=== PATIENT | male | born 1965 | race Caucasian/White ===

== ENCOUNTER 2018-09-18 00:59 | Emergency (ER) | payer OTHER, MEDICAID, SELFPAY ==
[2018-09-18 01:05] VITALS: BP 182/109; PULSE 90; RESP 18; TEMP 36.6; O2SAT 95; BMI 26.9
--- NOTE | 2018-09-18 02:03 | DI.CT.S_ITS ---
PROCEDURE: CT ANGIO ABD AORTA RUNOFF INDICATIONS: left hip pain, cold left leg, history of fem-pop and dissection TECHNIQUE: After the administration of intravenous contrast, 2.5 mm sections acquired from T12 to the feet, with optional delayed image acquisition from the knees to the feet. 3-dimensional maximum intensity projection (MIP) coronal and sagittal reformats, and/or 3-dimensional volume rendering reformatting was then performed. For radiation dose reduction, the following was used: automated exposure control. COMPARISON: [facility], CT, CHEST/ABD/PEL W&WO CONTRAST, 08/11/2015, 16:26. [facility], CT, ANGIOGRAPHY CHEST AND ABDOMEN, 10/18/2015, 0:59. FINDINGS: Image quality: Excellent. Extravascular tissues: Lung bases are clear. Heart size is normal. Liver is normal in size and enhancement. Gallbladder is unremarkable. Biliary system is non dilated. Pancreas enhances normally. Spleen is normal in size and enhancement. No adrenal nodules. Kidneys are normal in size and enhancement, without hydronephrosis. Non opacified bowel loops demonstrate normal wall thickness and enhancement. The appendix is thin walled and gas filled. There are scattered sigmoid diverticula. No evidence for diverticulitis. No free fluid or air. No retroperitoneal or mesenteric adenopathy. No ventral hernias. The questionable enhancing mass is present at the anterior aspect of the bladder (series 5, image 188). The bladder is otherwise thin walled. No inguinal adenopathy. There are bilateral small fat-containing inguinal hernias. There are degenerative changes present at the left hip joint with marked deformity of the femoral head and the acetabulum. Mild hip arthritis is present on the right. Posterior fixation hardware at the lumbosacral junction is grossly intact. No vertebral body compression fractures. Abdominal aorta: Aortic dissection is redemonstrated. There is increased fusiform dilatation of the distal thoracic and abdominal aorta when compared with prior CT dated 08/11/15. The distal thoracic aorta now measures 3.4 cm in AP diameter and previously measured 2.6 cm. As before, the true lumen feeds the celiac axis, SMA, bilateral renal arteries, and is propagated down both common iliac arteries. The LISA is likely fed off the true lumen as well. The size of the true lumen is increased with respect to the false lumen when compared with the prior study from 2014. The true lumen now extends down both iliac arteries to perfuse the lower extremities. Right lower extremity: The right common iliac artery measures 2.6 cm in diameter. The aortic dissection extends down the common iliac artery to the bifurcation of the internal/external iliac arteries. The iliac arteries, common femoral artery, profunda, and superficial femoral artery are widely patent. There is an extra anatomic femoral-femoral bypass graft which is patent. The popliteal artery, anterior tibial, posterior tibial, and peroneal arteries are patent to the level of the foot. Left lower extremity: The lumen of the aortic dissection terminates within the midportion of the left common iliac artery. The left common iliac artery measures 2.3 cm in diameter. The left internal/external iliac arteries, common femoral artery, profunda, superficial femoral artery, and popliteal artery are widely patent. The anterior tibial, posterior tibial, and peroneal arteries are well-opacified to mid calf. There is no opacification of the distal aspect of the anterior posterior tibial artery which likely represents poor timing of the contrast bolus and less likely represents occlusion. IMPRESSION: 1. Abdominal aortic dissection with fusiform dilatation of the distal thoracic aorta which is increased when compared with the prior study from 2015. The extent of aortic dissection is incompletely characterized without the use of the thorax. 2. Propagation of the dissection into the bilateral common iliac arteries. 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 3. Widely patent lower extremity arteries bilaterally and a patent extra anatomic femoral-femoral bypass graft. 4. Probable bilateral three-vessel lower extremity runoff. There is no opacification of the distal half of the left posterior tibial artery; however this is likely secondary to delayed timing bolus as opposed to true occlusion. If further characterization is warranted, ultrasound of this vessel was recommended. Please note, this is discrepant with the overnight interpretation. 5. Severe degenerative change within the left hip joint. 6. Questionable enhancing anterior bladder mass. Neoplasm cannot be excluded. Consider direct visualization. Overall findings are concordant with the overnight interpretation. Dictated by: Carole Cadena M.D. on 09/18/2018 at 7:23 Approved by: Carole Cadena M.D. on 09/18/2018 at 9:00
[2018-09-18 02:28] LABS: Add Manual Diff / Slide Review NO; Basophils Absolute Auto 100 /uL (0-100); Basophils Percent Auto 0.7 % (0-2); Eosinophils Absolute Auto 200 /uL (0-450); Eosinophils Percent Auto 2.4 % (2-4); Hematocrit 46.8 % (41-53); Hemoglobin 15.8 g/dL (13.5-17.5); Lymphocytes Absolute Auto 1500 /uL (1100-4500); Lymphocytes Percent Auto 18.3 % (25-40); Mean Corpuscular HGB Conc 33.9 % (30-36); Mean Corpuscular Volume 85.7 fL (80-100); Monocytes Absolute Auto 700 /uL (0-900); Monocytes Percent Auto 8.7 % (3-14); Neutrophils Absolute Auto 5700 /uL (1500-7000); Neutrophils Percent Auto 69.9 % (50-75); Platelet Count 267 X10^3/uL (150-400); Red Blood Cell Count 5.46 X10^6/uL (4.5-5.9); Red Cell Distribution Width 15.2 % (11.6-14.8); White Blood Cell Count 8.2 X10^3/uL (4.5-11.0)
[2018-09-18 02:29] LABS: INR 0.9 (0.9-1.3); Prothrombin Time 10.3 SECONDS (10.1-12.7)
[2018-09-18 02:31] LABS: PTT Partial Thromboplastin Tim 33 SECONDS (26.4-36.2)
[2018-09-18 02:33] LABS: BUN Creatinine Ratio 17.1 (6-22); Blood Urea Nitrogen 24 mg/dL (9-20); Calcium 9.5 mg/dL (8.4-10.2); Carbon Dioxide 30 mmol/L (22-32); Chloride 103 mmol/L (98-107); Estimated Glomerular Filt Rate 53.4 mL/min (>60); Glucose 93 mg/dL (70-100); HEMOLYSIS < 15 (0-50); Potassium 4.8 mmol/L (3.4-5.1); Sodium 141 mmol/L (137-145)
[2018-09-18 02:45] VITALS: BP 151/97; PULSE 80; RESP 18; O2SAT 97
[2018-09-18 04:14] VITALS: BP 157/97; PULSE 87; RESP 18; TEMP 36.7; O2SAT 96
--- NOTE | 2018-09-18 04:51 | ED_ITS ---
HPI - Extremity Problem General Chief complaint: Extremity Problem,Nontraumatic Stated complaint: left hip pain has stent in area Time Seen by Provider: 09/18/18 01:46 Source: patient Mode of arrival: ambulatory Limitations: no limitations History of Present Illness HPI Narrative: Patient is a 53-year-old male presenting with left hip pain ongoing for the last 6 months. He says it is not any worse however he is having difficulty getting a primary care physician along with into his vascular surgeons down in [place]. He has significant peripheral vascular disease along with some type 1 aortic dissection. He says he has a fem-pop bypass as well which was done 3 years ago. Since then his left foot has been cold no one has ever been able to palpate or Doppler a pulse. He walks with a cane, he says his right leg does much of the work. The pain in his hip is overall just progressively gotten worse he has no back pain no numbness or he has no abdominal pain nausea vomiting no chest pain no shortness of breath. He denies any back pain no injury. tingling in his extremities. He has not had any fever or chills. He just would like some help and the referral all and/or a workup of any kind. He also admits that he is not taking aspirin regularly. MD Complaint: extremity pain Related Data Previous Rx's Medication Instructions Recorded aspirin 81 mg PO DAILY #60 tab 09/18/18 Review of Systems Review of Systems ROS Unobtainable: All systems reviewed & are unremarkable except as noted in HPI and below Constitutional Denies chills, Denies fever(s), Denies lethargy and Denies weakness Cardiovascular Reports as per HPI, Denies chest pain, Denies syncope, Denies rapid heart rate, Denies pedal edema, Denies edema, Denies lightheadedness, Denies dyspnea and Denies dyspnea on exertion Respiratory Denies cough, Denies dyspnea, Denies dyspnea on exertion and Denies wheezing Gastrointestinal Gastrointestinal: Denies abdominal pain, Denies change in bowel habits, Denies diarrhea, Denies nausea and Denies vomiting Musculoskeletal Reports as per HPI Integumentary/Breasts Denies pruritus, Denies erythema, Denies rash and Denies wounds Neurologic Denies syncope and Denies weakness Allergic/Immunologic Denies wheezing Exam Initial Vital Signs Initial Vital Signs: Vital Signs Temperature 98 F 09/18/18 01:05 Pulse Rate 90 01/19/19 01:05 Respiratory Rate 18 09/18/18 01:05 Blood Pressure 182/109 H 09/18/18 01:05 Pulse Oximetry 95 09/18/18 01:05 GENERAL: Well-appearing, well-nourished and in no acute distress. HEENT: Head atraumatic,EOMI, pupils reactive, face symmetric, moist mucous membranes CARDIOVASCULAR: Regular rate and rhythm without murmurs, rubs or gallops. RESPIRATORY: Breath sounds equal bilaterally, no wheezes rales or rhonchi. ABDOMEN: Soft, nontender. Normoactive bowel sounds all 4 quadrants. No guarding or rebound : No CVA tenderness EXTREMITIES: Normal range of motion, no clubbing or edema. Neurovascularly intact Left hip is extremely tender ill with any kind of internal external rotation nontender palpation ft is cyanotic no palpable or dopplerable pulses. Groin is warm with of faint femoral pulse is present. NEUROLOGICAL: Alert and oriented x4. Cranial nerves II through XII grossly intact. Ambulatory with cane but not normal posture SKIN: Warm, dry, no laceration, no petechiae, no rashes or lesions. Course Orders Ordered: ED Orders 09/18/18 02:03 CT angio abd aorta runoff Stat 09/18/18 02:09 Basic Metabolic Panel Stat Complete Blood Count AUTO DIFF Stat Partial Thromboplastin Time Stat Prothrombin Time INR Stat Vital Signs - 8 hr 09/18/18 01:05 09/18/18 02:45 09/18/18 04:14 Temperature 98 F 98.0 F Pulse Rate 90 80 87 Respiratory Rate 18 18 18 Blood Pressure 182/109 H Blood Pressure [Left Arm] 151/97 H 157/97 H Pulse Oximetry 95 97 96 MDM - Extremity (Nontraumatic) Lab Data Attestation: I reviewed the patient's lab results. Result diagrams: 09/18/18 02:09 09/18/18 02:09 Lab Results 09/18/18 09/18/18 09/18/18 Range/Units 02:09 02:09 02:09 WBC 8.2 (4.5-11.0) X10^3/uL RBC 5.46 (4.5-5.9) X10^6/uL Hgb 15.8 (13.5-17.5) g/dL Hct 46.8 (41-53) % MCV 85.7 (80-100) fL MCH 29.0 (26-34) PG MCHC 33.9 (30-36) % RDW 15.2 H (11.6-14.8) % Plt Count 267 (150-400) X10^3/uL Neut % (Auto) 69.9 (50-75) % Lymph % (Auto) 18.3 L (25-40) % [place] % (Auto) 8.7 (3-14) % Eos % (Auto) 2.4 (2-4) % Baso % (Auto) 0.7 (0-2) % Neut # (Auto) 5700 (2893-1252) /uL Lymph # (Auto) 1500 (1389-3402) /uL [place] # (Auto) 700 (0-900) /uL Eos # (Auto) 200 (0-450) /uL Baso # (Auto) 100 (0-100) /uL PT 10.3 (10.1-12.7) SECONDS INR 0.9 (0.9-1.3) APTT 33 (26.4-36.2) SECONDS Sodium 141 (137-145) mmol/L Potassium 4.8 (3.4-5.1) mmol/L Chloride 103 (98-107) mmol/L Carbon Dioxide 30 (22-32) mmol/L BUN 24 H (9-20) mg/dL Creatinine 1.40 H (0.66-1.25) mg/dL Estimated GFR 53.4 L (>60) mL/min BUN/Creatinine Ratio 17.1 (6-22) Glucose 93 (70-100) mg/dL Calcium 9.5 (8.4-10.2) mg/dL Imaging Data CT angio abdomen runoff: Radiologist's impression: multi share program coordinator report: Abdominal aortic dissection. The dissection involves the partially visualized descending thoracic aorta. Extent of the involvement of the thoracic aorta is unknown as the chest was not imaged. 2 query mild enteritis. 3. 1 cm enhancing lesion in the anterior wall of the urinary bladder. Malignancy is not excluded. 4. Advanced degenerative changes of the hip. Suspected avascular necrosis of left femoral head. 5. Small left hip joint effusion. Septic arthritis is not excluded. Angiogram runoff. 2 vessel runoff of left foot occlusion of mid left posterior tibial artery. Three-vessel runoff of the right foot. 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 He says no one is able to fix that. He has been having hip pain ongoing for the last 6 months. I discussed results with the radiologist. Suspect his avascular necrosis on arthritis. I have watch patient ambulate while in the ED he does a lot of stress into that hip he is unable to fully weight bear on his left side. At this time no need for any emergent consultations. I did discuss with him at length his he may require a foot amputation which would likely help so he may require a hip replacement. He is given information for Orthopedics and strongly recommended to call them. At this time his symptoms have been ongoing for least 6 months or more. Discharge Plan Departure Patient Disposition: Home Clinical Impression: Avascular necrosis Discharge Date/Time: 09/18/18 05:05 Interventions: ED Discharge Assessment Last Done: 09/18/18 05:29 Instructions: Aseptic Necrosis of the Hip Activity Restrictions/Additional Instructions: *You have been diagnosed with likely avascular necrosis of the hip *What to do: May require surgery, this certainly can cause worsening problems if not addressed however this is been ongoing for a number of months. *Continue to take medications as directed: FAXED TO [facility] [place] Aspirin 81 mg once a day *Follow up with your primary care provider in 2-3 days, call Orthopedic surgery Thursday for potential follow-up *Return to ER if you should have numbness, tingling, increased weakness or any new, worsening or concerning symptoms Prescriptions: New aspirin 81 mg tablet,chewable 81 mg PO DAILY Qty: 60 RF: 0 Referrals: [facility] [Provider Group] Yazan Lord MD [Primary Care Provider] -
== END 2018-09-18 05:05 | disposition home or self-care (01) ==
PROVIDERS: Emergency Provider Emergency Medicine; Family Provider Thoracic Surgery (Cardiothoracic Vascular Surgery); PCP Thoracic Surgery (Cardiothoracic Vascular Surgery)
DX: M87.00 Idiopathic aseptic necrosis of unspecified bone (principal)
CPT/HCPCS: 36591; 75635; 80048; 85025; 85610; 85730; 99282; 99284; Q9967

== ENCOUNTER → 2019-02-25 09:26 | Outpatient (CLI) | payer OTHER, MEDICAID, SELFPAY ==
[2019-02-25 10:00] LABS: Urine Tetrahydrocannabinol Negative (Negative)
[2019-02-25 10:01] LABS: Urine Amphetamines Negative (Negative); Urine Barbiturates Negative (Negative); Urine Benzodiazepines Negative (Negative); Urine Cocaine Negative (Negative); Urine MDMA Negative (Negative); Urine Methadone Negative (Negative); Urine Methamphetamines Negative (Negative); Urine Morphine/Opi cutoff 2000 Negative (Negative); Urine Oxycodone Negative (Negative); Urine Phencyclidine Negative (Negative); Urine Tricyclic Antidepressant Negative (Negative)
[2019-02-25 10:32] LABS: Add Manual Diff / Slide Review NO; Basophils Absolute Auto 0 /uL (0-100); Basophils Percent Auto 0.6 % (0-2); Eosinophils Absolute Auto 200 /uL (0-450); Eosinophils Percent Auto 2.2 % (2-4); Hematocrit 47.1 % (41-53); Hemoglobin 15.8 g/dL (13.5-17.5); Lymphocytes Absolute Auto 1700 /uL (1100-4500); Lymphocytes Percent Auto 23.3 % (25-40); Mean Corpuscular HGB Conc 33.6 % (30-36); Mean Corpuscular Hemoglobin 29.4 PG (26-34); Mean Corpuscular Volume 87.5 fL (80-100); Monocytes Absolute Auto 600 /uL (0-900); Monocytes Percent Auto 8.7 % (3-14); Neutrophils Absolute Auto 4800 /uL (1500-7000); Neutrophils Percent Auto 65.2 % (50-75); Platelet Count 257 X10^3/uL (150-400); Red Blood Cell Count 5.38 X10^6/uL (4.5-5.9); Red Cell Distribution Width 14.4 % (11.6-14.8); White Blood Cell Count 7.4 X10^3/uL (4.5-11.0)
[2019-02-25 10:57] LABS: BUN Creatinine Ratio 21.4 (6-22); Blood Urea Nitrogen 30 mg/dL (9-20); Calcium 9.2 mg/dL (8.4-10.2); Carbon Dioxide 25 mmol/L (22-32); Chloride 104 mmol/L (98-107); Cholesterol 192 mg/dL (140-199); Estimated Glomerular Filt Rate 53.4 mL/min (>60); Glucose 94 mg/dL (70-100); HDL Cholesterol 32 mg/dL (40-60); HEMOLYSIS < 15 (0-50); LDL Cholesterol Calculated 108 mg/dL (<100); Potassium 4.2 mmol/L (3.4-5.1); Sodium 140 mmol/L (137-145); Triglycerides 262 mg/dL (35-150)
== END ==
PROVIDERS: Visit Provider Internal Medicine Cardiovascular Disease
DX: I10 Essential (primary) hypertension (principal); Z86.79 Personal history of other diseases of the circulatory system; Z86.73 Personal history of transient ischemic attack (TIA), and cerebral infarction without residual deficits; Z87.898 Personal history of other specified conditions
CPT/HCPCS: 36415; 80048; 80061; 80305; 85025

== ENCOUNTER 2020-09-01 09:06 | Emergency (ER) | payer OTHER, MEDICAID, SELFPAY ==
[2020-09-01 09:26] VITALS: BP 147/82; PULSE 93; RESP 18; TEMP 36.3; O2SAT 96
--- NOTE | 2020-09-01 09:39 | DI.US.S_ITS ---
PROCEDURE: US SCROTUM INDICATIONS: RIGHT TESTICULAR PAIN TECHNIQUE: Real-time scanning was performed of the scrotum and testicles, with image documentation. Color and pulse Doppler interrogation was performed of both testicles. COMPARISON: None. FINDINGS: Right: Testicle is normal in size at 3.6 x 2.1 x 3 cm, and homogenous in echotexture. Epididymis is normal in overall size. The epididymis is seen, with a thickness of 1.8 cm. Small cysts can be seen within the epididymis measuring up to 5 mm. There is a complex nonvascular mass seen within the right epididymis that measures 2.2 x 1.3 x 2.2 cm. Apparent calcification can be seen within this epididymal mass. There is a moderate right-sided hydrocele. No varicocele is seen. Overlying scrotal skin is normal in thickness. Left: Testicle is normal in size at 4.3 x 2.2 x 3 cm, and homogeneous in echotexture. Epididymis is normal in overall size and demonstrates small cysts that measure up to 5 mm. There is a small left-sided hydrocele. No varicoceles. Overlying scrotal skin is normal in thickness. Doppler: Color and pulse Doppler demonstrate normal and symmetric arterial flow in both testicles. IMPRESSION: 2.2 cm seen of the right epididymis, without abnormal vascularity. Moderate right-sided hydrocele. Small left-sided hydrocele seen. Epididymal cysts are seen on both sides. Dictated by: Charlie Vivar M.D. on 09/01/2020 at 10:03 Approved by: Charlie Vivar M.D. on 09/01/2020 at 10:07
[2020-09-01 10:00] LABS: Add Manual Diff / Slide Review NO; Basophils Absolute Auto 100 /uL (0-100); Basophils Percent Auto 0.8 % (0-2); Eosinophils Absolute Auto 200 /uL (0-450); Eosinophils Percent Auto 2.4 % (2-4); Hematocrit 46.2 % (41-53); Hemoglobin 15.6 g/dL (13.5-17.5); Lymphocytes Absolute Auto 1000 /uL (1100-4500); Lymphocytes Percent Auto 13.4 % (25-40); Mean Corpuscular HGB Conc 33.9 % (30-36); Mean Corpuscular Hemoglobin 29.9 PG (26-34); Mean Corpuscular Volume 88.4 fL (80-100); Monocytes Absolute Auto 700 /uL (0-900); Monocytes Percent Auto 8.9 % (3-14); Neutrophils Absolute Auto 5600 /uL (1500-7000); Neutrophils Percent Auto 74.5 % (50-75); Platelet Count 233 X10^3/uL (150-400); Red Blood Cell Count 5.23 X10^6/uL (4.5-5.9); Red Cell Distribution Width 13.9 % (11.6-14.8); White Blood Cell Count 7.5 X10^3/uL (4.5-11.0)
[2020-09-01 10:05] LABS: INR 0.9 (0.9-1.3); Prothrombin Time 10.5 SECONDS (10.1-12.7)
[2020-09-01 10:07] LABS: PTT Partial Thromboplastin Tim 32 SECONDS (26.4-36.2)
--- NOTE | 2020-09-01 10:22 | ED.ABDPAIN ---
HPI - Abdominal Pain General Chief Complaint: Abdominal Pain Stated Complaint: ABDOMINAL/TESTICLE PAIN Time Seen by Provider: 09/01/20 09:12 Source: patient Mode of arrival: Wheelchair Limitations: no limitations History of Present Illness HPI narrative: This is a 55-year-old gentleman, smoker, who has past medical history significant for abdominal aortic dissection followed with surgery presents to ED with chief complain of right groin and suprapubic mild discomfort and leg pain. Patient reports onset of symptoms started 3-4 weeks ago which has been progressively worsening. He describes as kicked in the nuts. Patient denies fever, chills, vomiting but mild nausea. Patient denies dysuria but noticed changes in urination such as stronger stream but small amounts to void. Patient denies urinary frequency or hematuria. Patient states feels like emptying bladder completely. Reports pain increases with sleeping and lying on the side and has been pretty constant but not much of pain at this time. Also pain increases with increasing activity. Patient feels as there is swelling in right-sided scrotum. Patient denies chest pain, dyspnea, or near syncope. Patient takes high blood pressure medications which he does not remember medication name. She does not have PCP but sees [facility] in [place] and in [facility]. Related Data Home Medications Medication Instructions Recorded Confirmed hydralazine 10 mg tablet 10 mg PO TID 11/01/18 11/01/18 losartan 25 mg tablet 25 mg PO DAILY 11/01/18 11/01/18 metoprolol succinate 100 mg 100 mg PO DAILY 11/01/18 11/01/18 tablet,extended release 24 hr Previous Rx's Medication Instructions Recorded aspirin 81 mg PO DAILY #60 tab 09/18/18 Allergies Allergy/AdvReac Type Severity Reaction Status Date / Time No Known Drug Allergies Allergy Verified 09/01/20 09:37 Review of Systems Review of Systems Narrative: General: Denies fever, chills, fatigue, malaise, sweats. HEENT: Denies sinus pain, ear pain, sore throat, difficulty swallowing, dizziness. Respiratory: Denies dyspnea, cough, wheezing, hemoptysis, sputum. Cardiovascular: Denies chest pain, palpitations, orthopnea, edema. Gastrointestinal: See HPI : See HPI Musculoskeletal: Denies weakness, joint pain or bony pain. Skin: Denies rash, skin lesions, or other. Neurologic: Denies weakness, headache, numbness, change in speech, confusion, seizures, incoordination. Psychiatric: No concerning psychosocial issues. 12-point review of systems is negative except for those stated above. Patient History Social History Smoking Status: Current every day smoker Smoking Status: Current every day smoker alcohol intake frequency: 0-2 drinks per day Substance Use Type: marijuana Exam Narrative Exam Narrative: GEN: Alert, oriented x 3, well appearing and nourished, and in no acute distress. Head: Normal cephalic, atraumatic. No scalp or temporal tenderness, palpable mass or rash. EYES: Pupils are equal, round, and reactive to light and accommodation. Extraocular muscles are intact bilaterally. There is no subconjunctival hemorrhage, exudate and sclera non-icteric. ENT: Hearing grossly intact. Airway patent. Neck: Trachea in midline. No JVD, non-tender without lymphadenopathy. No masses or thyroid megaly. Supple, non-tender and no meningeal signs. CARDIAC: Normal regular rate and rhythm without murmurs, gallops, or rubs. No chest wall tenderness. No peripheral edema, cyanosis or pallor. Capillary refill is less than 2 seconds. RESPIRATORY: Lungs are clear to auscultate bilaterally. No cough, wheezes, rales, or rhonchi. No stridor, respiratory distress, increase work of breathing, or accessary muscle used. ABD: Abdomen soft, nontender and non-distended. No guarding or rebound tenderness to palpate. Bowel sounds are normal in all 4 quadrants. There is no palpable masses or organomegaly. EXT: Full painless ROM of all extremities with no loss of sensation, strength, effusion or edema. SKIN: Warm, dry, normal color for patient. No erythema, lesions or rash over visible areas. BACK: Nontender without deformity or crepitance. No flank tenderness. NEUROLOGICAL: Alert and oriented to place, time and person. Sensation and motor function intact bilaterally. No facial droops, dysphasia. PSYCHIATRIC: Good judgement and reason, without hallucinations, abnormal affect or abnormal behaviors during the examination. Patient is not suicidal. Initial Vital Signs Initial Vital Signs: Vital Signs Temperature 97.3 F L 09/01/20 09:26 Pulse Rate 93 H 09/01/20 09:26 Respiratory Rate 18 09/01/20 09:26 Blood Pressure 147/82 H 09/01/20 09:26 Pulse Oximetry 96 09/01/20 09:26 Penis: normal penis Meatus: meatus normal Scrotum: edematous, scrotal mass, scrotal swelling, no ulcerations and no varicoceles Testes: enlarged, testicular mass, testicular swelling, normal testicular lie and No testicular atrophy Scores GCS [place] coma scale eye opening: Spontaneous [place] coma scale verbal response: Orientated [place] coma scale motor response: Obey commands [place] coma scale total score: 15 qSOFA Altered Mental Status (GCS <15): No Respiratory rate greater than/equal to 22: No Systolic blood pressure less than or equal to 100: No qSOFA Total: 0 0-1 Not High Risk 1-3 High risk Course Orders Ordered: ED Orders 09/01/20 09:39 US scrotum Stat 09/01/20 09:50 Complete Blood Count AUTO DIFF Stat Comprehensive Metabolic Panel Stat Lipase Stat PTT [Partial Thromboplastin Time] Stat Prothrombin Time INR Stat Reevaluation(s) Reevaluation #1: Assumed care of the patient's care. US at bedside obtaining imaging test now. Time: 10:23 Vital Signs Vital signs: Vital Signs - 8 hr 09/01/20 09:26 Temperature 97.3 F L Pulse Rate 93 H Respiratory Rate 18 Blood Pressure 147/82 H Pulse Oximetry 96 MDM - Abdominal Pain Differential Diagnosis Differential diagnosis: Likely calculus of kidney and other (Hydrocele, testicular mass, epididymitis) Medical Records Attestation: I reviewed the patient's medical records. Lab Data Result diagrams: 09/01/20 09:50 09/01/20 09:50 Labs: Lab Results 09/01/20 09/01/20 Range/Units 09:50 09:50 WBC 7.5 (4.5-11.0) X10^3/uL RBC 5.23 (4.5-5.9) X10^6/uL Hgb 15.6 (13.5-17.5) g/dL Hct 46.2 (41-53) % MCV 88.4 (80-100) fL MCH 29.9 (26-34) PG MCHC 33.9 (30-36) % RDW 13.9 (11.6-14.8) % Plt Count 233 (150-400) X10^3/uL Neut % (Auto) 74.5 (50-75) % Lymph % (Auto) 13.4 L (25-40) % [place] % (Auto) 8.9 (3-14) % Eos % (Auto) 2.4 (2-4) % Baso % (Auto) 0.8 (0-2) % Neut # (Auto) 5600 (9963-9226) /uL Lymph # (Auto) 1000 L (2264-9399) /uL [place] # (Auto) 700 (0-900) /uL Eos # (Auto) 200 (0-450) /uL Baso # (Auto) 100 (0-100) /uL PT 10.5 (10.1-12.7) SECONDS INR 0.9 (0.9-1.3) APTT 32 (26.4-36.2) SECONDS Discharge Plan Departure Prescriptions: No Action hydralazine 10 mg tablet 10 mg PO TID RF: 0 losartan 25 mg tablet 25 mg PO DAILY RF: 0 metoprolol succinate 100 mg tablet extended release 24 hr 100 mg PO DAILY RF: 0 aspirin 81 mg tablet,chewable 81 mg PO DAILY Qty: 60 RF: 0
[2020-09-01 10:27] LABS: Alanine Aminotransferase 30 IU/L (<50); Albumin 4.1 g/dL (3.5-5.0); Albumin Globulin Ratio 1.2 (1.0-2.8); Alkaline Phosphatase 102 U/L (38-126); Aspartate Aminotransferase 25 IU/L (17-59); BUN Creatinine Ratio 25.4 (6-22); Bilirubin Total 0.3 mg/dL (0.2-1.3); Blood Urea Nitrogen 35 mg/dL (9-20); Calcium 9.2 mg/dL (8.4-10.2); Carbon Dioxide 27 mmol/L (22-32); Chloride 105 mmol/L (98-107); Estimated Glomerular Filt Rate 53.9 mL/min (>60); Globulin 3.5 g/dL (1.7-4.1); Glucose 98 mg/dL (70-100); HEMOLYSIS < 15 (0-50); Lipase 117 U/L (23-300); Potassium 4.6 mmol/L (3.4-5.1); Sodium 137 mmol/L (137-145); Total Protein 7.6 g/dL (6.3-8.2)
--- NOTE | 2020-09-01 10:46 | ED_ITS ---
HPI - Abdominal Pain <TRIP Urena - Last Filed: 09/01/20 12:07> General Chief Complaint: Abdominal Pain Stated Complaint: ABDOMINAL/TESTICLE PAIN Time Seen by Provider: 09/01/20 09:12 Source: patient Mode of arrival: Wheelchair Limitations: no limitations History of Present Illness HPI narrative: This is a 55-year-old male, smoker, who has past medical history significant for aortic aneurysm dissection followed by open her surgery 5 years ago presents to ED with chief complain of right groin and mild suprapubic abdominal discomfort radiating to leg for last 3-4 weeks. Patient reports this discomfort has been progressively worse and describes as kicked in the nuts. Patient denies fever, chills, vomiting but mild nausea. Patient denies dysuria, urinary frequency, or hematuria. Patient reports back pain but states had back surgeries in the past. Patient reports pain increases with sleeping and lying on his side, and physical activities. Patient reports changes in urinary habits and explains as stream seems slightly stronger but reports only in small amount. He feels as emptying bladder completely. He reports posterior scrotal swelling. Patient takes 3 blood pressure medications and baby aspirin daily but is not currently on anticoagulant/anti platelets. Patient denies chest pain, dyspnea, or dizziness. Patient has not been sexually active for a while and denies penile discharge. No PCP this time and his medication has been managed by stick feeder in [facility]. Related Data Home Medications Medication Instructions Recorded Confirmed hydralazine 10 mg tablet 10 mg PO TID 11/01/18 11/01/18 losartan 25 mg tablet 25 mg PO DAILY 11/01/18 11/01/18 metoprolol succinate 100 mg 100 mg PO DAILY 11/01/18 11/01/18 tablet,extended release 24 hr Previous Rx's Medication Instructions Recorded aspirin 81 mg PO DAILY #60 tab 09/18/18 levofloxacin 500 mg PO DAILY 10 Days #10 tab 09/01/20 Allergies Allergy/AdvReac Type Severity Reaction Status Date / Time No Known Drug Allergies Allergy Verified 09/01/20 09:37 Review of Systems <TRIP Urena - Last Filed: 09/01/20 12:07> Review of Systems Narrative: General: Denies fever, chills, fatigue, malaise, sweats. HEENT: Denies sinus pain, ear pain, sore throat, difficulty swallowing, dizziness. Respiratory: Denies dyspnea, cough, wheezing, hemoptysis, sputum. Cardiovascular: Denies chest pain, palpitations, orthopnea, edema. Gastrointestinal: See HPI : See HPI Musculoskeletal: Denies weakness, joint pain or bony pain. Skin: Denies rash, skin lesions, or other. Neurologic: Denies weakness, headache, numbness, change in speech, confusion, seizures, incoordination. Psychiatric: No concerning psychosocial issues. 12-point review of systems is negative except for those stated above. Patient History <TRIP Urena - Last Filed: 09/01/20 12:07> Social History Smoking Status: Current every day smoker Smoking Status: Current every day smoker alcohol intake frequency: 0-2 drinks per day Substance Use Type: marijuana Exam <TRIP Urena - Last Filed: 09/01/20 12:07> Narrative Exam Narrative: GEN: Alert, oriented x 3, well appearing and nourished, and in no acute distress. Head: Normal cephalic, atraumatic. No scalp or temporal tenderness, palpable mass or rash. EYES: Pupils are equal, round, and reactive to light and accommodation. Extraocular muscles are intact bilaterally. There is no subconjunctival hemorrhage, exudate and sclera non-icteric. ENT: Hearing grossly intact. Airway patent. Neck: Trachea in midline. No JVD, non-tender without lymphadenopathy. No masses or thyroid megaly. Supple, non-tender and no meningeal signs. CARDIAC: Normal regular rate and rhythm without murmurs, gallops, or rubs. No chest wall tenderness. No peripheral edema, cyanosis or pallor. Capillary r efill is less than 2 seconds. RESPIRATORY: Lungs are clear to auscultate bilaterally. No cough, wheezes, rales, or rhonchi. No stridor, respiratory distress, increase work of breathing, or accessary muscle used. ABD: Abdomen soft, nontender and non-distended. No guarding or rebound tenderness to palpate. Bowel sounds are normal in all 4 quadrants. There is no palpable masses or organomegaly. EXT: Full painless ROM of all extremities with no loss of sensation, strength, effusion or edema. SKIN: Warm, dry, normal color for patient. No erythema, lesions or rash over visible areas. BACK: Nontender without deformity or crepitance. No flank tenderness. NEUROLOGICAL: Alert and oriented to place, time and person. Sensation and motor function intact bilaterally. No facial droops, dysphasia. PSYCHIATRIC: Good judgement and reason, without hallucinations, abnormal affect or abnormal behaviors during the examination. Patient is not suicidal. Initial Vital Signs Initial Vital Signs: Vital Signs Temperature 97.3 F L 09/01/20 09:26 Pulse Rate 93 H 09/01/20 09:26 Respiratory Rate 18 09/01/20 09:26 Blood Pressure 147/82 H 09/01/20 09:26 Pulse Oximetry 96 09/01/20 09:26 Penis: normal penis Meatus: meatus normal Scrotum: edematous, erythematous, scrotal mass on the right (Posterior) soft and scrotal swelling Testes: testicular mass, testicular swelling, no testicular tenderness, normal testicular lie and No testicular atrophy Other: Chaperoned by Maximo Morfin <Telly Vera DO - Last Filed: 09/01/20 18:09> Initial Vital Signs Initial Vital Signs: Vital Signs Temperature 97.3 F L 09/01/20 09:26 Pulse Rate 93 H 09/01/20 09:26 Respiratory Rate 18 09/01/20 09:26 Blood Pressure 147/82 H 09/01/20 09:26 Pulse Oximetry 96 09/01/20 09:26 Scores <TRIP Urena - Last Filed: 09/01/20 12:07> GCS Sandee coma scale eye opening: Spontaneous Sandee coma scale verbal response: Orientated Sandee coma scale motor response: Obey commands Sandee coma scale total score: 15 qSOFA Altered Mental Status (GCS <15): No Respiratory rate greater than/equal to 22: No Systolic blood pressure less than or equal to 100: No qSOFA Total: 0 0-1 Not High Risk 1-3 High risk Course <TRIP Urena - Last Filed: 09/01/20 12:07> Orders Ordered: ED Orders 09/01/20 09:39 US scrotum Stat 09/01/20 09:50 Complete Blood Count AUTO DIFF Stat Comprehensive Metabolic Panel Stat Lipase Stat PTT [Partial Thromboplastin Time] Stat Prothrombin Time INR Stat Discontinued Medications Sodium Chloride (Normal Saline 0.9%) 1,000 mls @ 150 mls/hr IV CONT BENITO Last Infusion: 09/01/20 11:53 Dose: 0 mls/hr Documented by: Admin: 09/01/20 11:45 Dose: 150 mls/hr Documented by: JOESPH Vital Signs Vital signs: Vital Signs - 8 hr 09/01/20 12:05 Pulse Rate 82 Respiratory Rate 14 Blood Pressure 141/82 H Pulse Oximetry 99 <Telly Vera DO - Last Filed: 09/01/20 18:09> Orders Ordered: ED Orders 09/01/20 09:39 US scrotum Stat 09/01/20 09:50 Complete Blood Count AUTO DIFF Stat Comprehensive Metabolic Panel Stat Lipase Stat PTT [Partial Thromboplastin Time] Stat Prothrombin Time INR Stat Discontinued Medications Sodium Chloride (Normal Saline 0.9%) 1,000 mls @ 150 mls/hr IV CONT BENITO Last Infusion: 09/01/20 11:53 Dose: 0 mls/hr Documented by: Admin: 09/01/20 11:45 Dose: 150 mls/hr Documented by: JOESPH Vital Signs Vital signs: Vital Signs - 8 hr 09/01/20 12:05 Pulse Rate 82 Respiratory Rate 14 Blood Pressure 141/82 H Pulse Oximetry 99 MDM - Abdominal Pain <TRIP Urena - Last Filed: 09/01/20 12:07> Differential Diagnosis Differential diagnosis: Likely calculus of kidney and other (Hydrocele, epididymitis, BPH, urinary retention, mass, torsion) Medical Records Attestation: I reviewed the patient's medical records. Lab Data Attestation: I reviewed the patient's lab results. Result diagrams: 09/01/20 09:50 09/01/20 09:50 Labs: Lab Results 09/01/20 09/01/20 09/01/20 Range/Units 09:50 09:50 09:50 WBC 7.5 (4.5-11.0) X10^3/uL RBC 5.23 (4.5-5.9) X10^6/uL Hgb 15.6 (13.5-17.5) g/dL Hct 46.2 (41-53) % MCV 88.4 (80-100) fL MCH 29.9 (26-34) PG MCHC 33.9 (30-36) % RDW 13.9 (11.6-14.8) % Plt Count 233 (150-400) X10^3/uL Neut % (Auto) 74.5 (50-75) % Lymph % (Auto) 13.4 L (25-40) % [place] % (Auto) 8.9 (3-14) % Eos % (Auto) 2.4 (2-4) % Baso % (Auto) 0.8 (0-2) % Neut # (Auto) 5600 (5960-4597) /uL Lymph # (Auto) 1000 L (4095-3833) /uL [place] # (Auto) 700 (0-900) /uL Eos # (Auto) 200 (0-450) /uL Baso # (Auto) 100 (0-100) /uL PT 10.5 (10.1-12.7) SECONDS INR 0.9 (0.9-1.3) APTT 32 (26.4-36.2) SECONDS Sodium 137 (137-145) mmol/L Potassium 4.6 (3.4-5.1) mmol/L Chloride 105 (98-107) mmol/L Carbon Dioxide 27 (22-32) mmol/L BUN 35 H (9-20) mg/dL Creatinine 1.38 H (0.66-1.25) mg/dL Estimated GFR 53.9 L (>60) mL/min BUN/Creatinine Ratio 25.4 H (6-22) Glucose 98 (70-100) mg/dL Calcium 9.2 (8.4-10.2) mg/dL Total Bilirubin 0.3 (0.2-1.3) mg/dL AST 25 (17-59) IU/L ALT 30 (<50) IU/L Alkaline Phosphatase 102 (38-126) U/L Total Protein 7.6 (6.3-8.2) g/dL Albumin 4.1 (3.5-5.0) g/dL Globulin 3.5 (1.7-4.1) g/dL Albumin/Globulin Ratio 1.2 (1.0-2.8) Lipase 117 (23-300) U/L Point of care testing: Urine Dip Bedside Urine Glucose Negative Bedside Urine Bilirubin - Negative Bedside Urine Ketone - Negative Urine Specific [place] 1.030 Bedside Urine Occult Blood - Negative Bedside Urine pH 6.0 Bedside Urine Protein - Negative Bedside Urine Urobilinogen - Negative Bedside Urine Nitrite - Negative Bedside Urine Leukocytes - Negative Esterase Imaging Data US scrotum: Radiologist's Impression: [address] [id number] ReportSigned Patient: Soto Blount#: [id number]: 1965Acct:[id number]/Sex: 55 / MDate of Service: 09/01/20Loc: EDAccession Number: [id number] Procedure: US scrotum Ordering Provider: Telly Vera D.O. PROCEDURE: US SCROTUM INDICATIONS: RIGHT TESTICULAR PAIN TECHNIQUE: Real-time scanning was performed of the scrotum and testicles, with image documentation. Color and pulse Doppler interrogation was performed of both testicles. COMPARISON: None. FINDINGS: Right: Testicle is normal in size at 3.6 x 2.1 x 3 cm, and homogenous in echotexture. Epididymis is normal in overall size. The epididymis is seen, with a thickness of 1.8 cm. Small cysts can be seen within the epididymis measuring up to 5 mm. There is a complex nonvascular mass seen within the right epididymis that measures 2.2 x 1.3 x 2.2 cm. Apparent calcification can be seen within this epididymal mass. There is a moderate right-sided hydrocele. No varicocele is seen. Overlying scrotal skin is normal in thickness. Left: Testicle is normal in size at 4.3 x 2.2 x 3 cm, and homogeneous in echotexture. Epididymis is normal in overall size and demonstrates small cysts that measure up to 5 mm. There is a small left-sided hydrocele. No varicoceles. Overlying scrotal skin is normal in thickness. Doppler: Color and pulse Doppler demonstrate normal and symmetric arterial flow in both testicles. IMPRESSION: 2.2 cm seen of the right epididymis, without abnormal vascularity. Moderate right-sided hydrocele. Small left-sided hydrocele seen. Epididymal cysts are seen on both sides. Dictated by: Charlie Vivar M.D. on 09/01/2020 at 10:03 Approved by: Charlie Vivar M.D. on 09/01/2020 at 10:07 [facility] Narrative Medical decision making narrative: This is a 55 year male who presents to ED with right groin, scrotal, mild suprapubic discomfort with occasional nausea for last 3-4 weeks. Patient denies constitutional symptoms. Patient reports pain has been progressively worsening. Patient denies penile discharge and has not been sexually active for a while. No leukocytosis today. Kidney function is slightly decreased with inked occasions for mild dehydration according to chemistry test. However, kidney function has been patient's baseline since 1 year ago and creatinine level is between 1.38 (today) to 1.40 with estimated GFR from 53.4 to 53.9 (today). Physical exam appreciated bilateral scrotal swelling with small mass to palpate in right posterior all scrotum with mild erythema and warmth. Urine test does not indicate infection with negative nitrites and leuks. Post void residual bladder scanner obtained which shows from 34-143 ml. Patient may have urinary retention as well and BPH. Ultrasound of scrotum indicates all complex nonvascular mass in right epididymitis measuring 2.2 x 1.3 x 2.2 cm, small cyst within the epididymitis measuring up to 5 mm. There is a moderate right-sided hydrocele and small size left-sided hydrocele. There is normal and symmetric arterial flow to both testicles. Patient provided with a referral to Dr. Ochoa to follow-up and will treat patient with a 10 day course of 500 mg Levaquin (no renal dose adjustment required). Patient advised to use [id number] NSAIDS as needed with food for discomfort and jock strap for comfort as needed. Return precautions were discussed with patient he verbalized understanding in agreement with the treatment plan. <Telly Vera, DO - Last Filed: 09/01/20 18:09> Lab Data Labs: Lab Results 09/01/20 09/01/20 09/01/20 Range/Units 09:50 09:50 09:50 WBC 7.5 (4.5-11.0) X10^3/uL RBC 5.23 (4.5-5.9) X10^6/uL Hgb 15.6 (13.5-17.5) g/dL Hct 46.2 (41-53) % MCV 88.4 (80-100) fL MCH 29.9 (26-34) PG MCHC 33.9 (30-36) % RDW 13.9 (11.6-14.8) % Plt Count 233 (150-400) X10^3/uL Neut % (Auto) 74.5 (50-75) % Lymph % (Auto) 13.4 L (25-40) % [place] % (Auto) 8.9 (3-14) % Eos % (Auto) 2.4 (2-4) % Baso % (Auto) 0.8 (0-2) % Neut # (Auto) 5600 (9120-1626) /uL Lymph # (Auto) 1000 L (9226-3241) /uL [place]ston # (Auto) 700 (0-900) /uL Eos # (Auto) 200 (0-450) /uL Baso # (Auto) 100 (0-100) /uL PT 10.5 (10.1-12.7) SECONDS INR 0.9 (0.9-1.3) APTT 32 (26.4-36.2) SECONDS Sodium 137 (137-145) mmol/L Potassium 4.6 (3.4-5.1) mmol/L Chloride 105 (98-107) mmol/L Carbon Dioxide 27 (22-32) mmol/L BUN 35 H (9-20) mg/dL Creatinine 1.38 H (0.66-1.25) mg/dL Estimated GFR 53.9 L (>60) mL/min BUN/Creatinine Ratio 25.4 H (6-22) Glucose 98 (70-100) mg/dL Calcium 9.2 (8.4-10.2) mg/dL Total Bilirubin 0.3 (0.2-1.3) mg/dL AST 25 (17-59) IU/L ALT 30 (<50) IU/L Alkaline Phosphatase 102 (38-126) U/L Total Protein 7.6 (6.3-8.2) g/dL Albumin 4.1 (3.5-5.0) g/dL Globulin 3.5 (1.7-4.1) g/dL Albumin/Globulin Ratio 1.2 (1.0-2.8) Lipase 117 (23-300) U/L Point of care testing: Urine Dip Bedside Urine Glucose Negative Bedside Urine Bilirubin - Negative Bedside Urine Ketone - Negative Urine Specific [place] 1.030 Bedside Urine Occult Blood - Negative Bedside Urine pH 6.0 Bedside Urine Protein - Negative Bedside Urine Urobilinogen - Negative Bedside Urine Nitrite - Negative Bedside Urine Leukocytes - Negative Esterase Discharge Plan Departure Patient Disposition: Home Clinical Impression: Epididymitis, Epididymal mass Hydrocele Qualifiers: Hydrocele type: unspecified Qualified Code(s): N43.3 - Hydrocele, unspecified Instructions: DI for Epididymitis, DI for Hydrocele-Adult, Epididymal Cyst Activity Restrictions/Additional Instructions: You have been diagnosed with [hydrocele, epididymitis, cyst/mass in within the right epididymitis. Urine does not indicate infection. Kidney function.]. What to do: *Take your medications as directed. Please start taking level ofloxacin once a day for next 10 days. Levaquin has been transmitted to [facility]. *Follow up with your primary care provider/urologist in 2-3 days, call for an appointment. Let them know you were seen in the ED and that we asked you to be seen in follow up. *Return to ED if you have any new, worsening, or concerning symptoms, such as [worsening pain/swelling/redness/warm, dysuria, chest pain, fever, unable to tolerate fluids, dyspnea,]. Prescriptions: New levofloxacin 500 mg tablet 500 mg PO DAILY 10 Days Qty: 10 RF: 0 No Action hydralazine 10 mg tablet 10 mg PO TID RF: 0 losartan 25 mg tablet 25 mg PO DAILY RF: 0 metoprolol succinate 100 mg tablet extended release 24 hr 100 mg PO DAILY RF: 0 aspirin 81 mg tablet,chewable 81 mg PO DAILY Qty: 60 RF: 0 Referrals: [facility] [Outside] Sarah Ochoa MD [Physician] - <Telly Vera DO - Last Filed: 09/01/20 18:09> Cosign ED Attending Cosignature Attestation: I was immediately available in the department for consultation. This documentation has been reviewed and I agree with assessment and plan. Supervised by Telly Vera DO
[2020-09-01] MEDS: SODIUM CHLORIDE 0.9% 1,000 ML 150 ML IV (11:45)
--- NOTE | 2020-09-01 11:48 | PC.NURSE ---
pt states he felt like he was able to empty his bladder
[2020-09-01 12:05] VITALS: BP 141/82; PULSE 82; RESP 14; O2SAT 99
== END 2020-09-01 12:06 | disposition home or self-care (01) ==
PROVIDERS: Emergency Medicine; Emergency Provider Nurse Practitioner Family
DX: N45.3 Epididymo-orchitis (principal); N43.3 Hydrocele, unspecified; N50.89 Other specified disorders of the male genital organs; N50.811 Right testicular pain; Z86.79 Personal history of other diseases of the circulatory system
CPT/HCPCS: 36415; 51798; 76870; 80053; 81003; 83690; 85025; 85610; 85730; 99281; 99284

== ENCOUNTER → 2020-11-07 14:49 | Outpatient (CLI) | payer OTHER, MEDICAID, SELFPAY ==
--- NOTE | 2020-11-07 14:50 | DI.US.S_ITS ---
PROCEDURE: US SCROTUM INDICATIONS: RIGHT SCROTAL MASS TECHNIQUE: Real-time scanning was performed of the scrotum and testicles, with image documentation. Color and pulse Doppler interrogation was performed of both testicles. COMPARISON: [facility], , US SCROTUM, 09/01/2020, 10:16. FINDINGS: Right: Testicle is normal in size at 3.1 x 2.5 x 3.9 cm, and homogenous in echotexture. Epididymis is normal in overall size and morphology. There is a moderate right-sided hydrocele but no varicoceles. Overlying scrotal skin is normal in thickness. Scattered epididymal head cysts are present, the largest measuring 5 x 6 x 5 mm. There is increased vascularity at the midbody of the right epididymis, and a circumscribed epididymal mass is present measuring 2.0 x 1.4 x 1.7 cm a prior testicular ultrasound 09/01/20 had identified this structure as measuring 2.2 x 1.3 x 2.2 cm. Therefore it has only slightly reduced in size. Heterogeneity extends through the epididymal body, and at the tail of the epididymis there is a cyst measuring 1.6 x 1.4 x 1.6 cm. Left: Testicle is normal in size at 4.2 x 3 cm, and homogeneous in echotexture. Epididymis is normal in overall size and morphology. No hydrocele or varicoceles. Overlying scrotal skin is normal in thickness. The left epididymal head also contains scattered cysts, the largest measuring 6 x 6 x 4 mm. Doppler: Color and pulse Doppler demonstrate normal and symmetric arterial flow in both testicles. IMPRESSION: The complex mass like structure at the right epididymis has only slightly diminished in size as discussed above when compared to the prior study from August of this year. This structure shows increased vascularity, is circumscribed, and could represent an epididymal neoplasm. Chronic focal infection also should be considered but more significant improvement would have been expected assuming therapy was instituted in early August of this year. Dictated by: Colt Santos M.D. on 11/07/2020 at 16:19 Approved by: Colt Santos M.D. on 11/07/2020 at 16:28
== END ==
PROVIDERS: PCP Internal Medicine; Referring Provider Specialist; Visit Provider Specialist
DX: N50.89 Other specified disorders of the male genital organs (principal)
CPT/HCPCS: 76870

== ENCOUNTER 2021-01-31 12:56 | Emergency (ER) | payer OTHER, MEDICAID, SELFPAY ==
[2021-01-31 13:17] VITALS: BP 155/92; PULSE 103; RESP 16; TEMP 36.7; O2SAT 96; BMI 29.5
[2021-01-31 14:01] LABS: Add Manual Diff / Slide Review NO; Basophils Absolute Auto 0 /uL (0-100); Basophils Percent Auto 0.2 % (0-2); Eosinophils Absolute Auto 0 /uL (0-450); Eosinophils Percent Auto 0.2 % (2-4); Hematocrit 49.8 % (41-53); Hemoglobin 16.6 g/dL (13.5-17.5); Lymphocytes Absolute Auto 900 /uL (1100-4500); Lymphocytes Percent Auto 15.2 % (25-40); Mean Corpuscular HGB Conc 33.4 % (30-36); Mean Corpuscular Hemoglobin 28.9 PG (26-34); Mean Corpuscular Volume 86.5 fL (80-100); Monocytes Absolute Auto 800 /uL (0-900); Monocytes Percent Auto 13.8 % (3-14); Neutrophils Absolute Auto 4000 /uL (1500-7000); Neutrophils Percent Auto 70.6 % (50-75); Platelet Count 239 X10^3/uL (150-400); Red Blood Cell Count 5.76 X10^6/uL (4.5-5.9); Red Cell Distribution Width 14.3 % (11.6-14.8); White Blood Cell Count 5.6 X10^3/uL (4.5-11.0)
[2021-01-31] MEDS: SODIUM CHLORIDE 0.9% 1,000 ML 1000 ML IV (14:02)
[2021-01-31] MEDS: ONDANSETRON 4 MG/2 ML INJ IV (14:02)
--- NOTE | 2021-01-31 14:03 | ED_ITS ---
HPI - Nausea/Vomiting/Diarrhea <WILLIAN Reynoso-BC - Last Filed: 01/31/21 16:02> General Chief complaint: Nausea/Vomiting/Diarrhea Stated complaint: Sick For A Couple Weeks, Weakness Time Seen by Provider: 01/31/21 13:31 Source: patient Mode of arrival: Ambulatory Limitations: no limitations History of Present Illness HPI Narrative: The patient is a 55-year-old male current everyday smoker who presents to the emergency department with multiple complaints. He states he has been feeling poorly for weeks. He complains of headache for the 1st 5 days, but he currently has no headache. He complains of general fatigue, weakness, decreased appetite. He states he is not eating and drinking as much as he should because he does not feel like it. Furthermore he has not taken his medications for the past several days because he did not feel up to it. He denies any pain. Denies any chest pain or shortness of breath. He complains of slight nausea with no vomiting. He complains of slight loose stools. Denies any dysuria urgency or frequency. Denies any swelling of his extremities. He states overall he just feels very tired and weak. He does not know of any specific coronavirus exposure, but has not been vaccinated against coronavirus. Related Data Previous Rx's Medication Instructions Recorded aspirin 81 mg PO DAILY #60 tab 09/18/18 amlodipine 5 mg tablet 5 mg PO DAILY #90 tab 11/16/20 losartan 25 mg tablet 25 mg PO DAILY #90 tab 11/16/20 metoprolol succinate 100 mg 100 mg PO BID #180 tab 11/16/20 tablet,extended release 24 hr Allergies Allergy/AdvReac Type Severity Reaction Status Date / Time No Known Drug Allergies Allergy Verified 01/31/21 13:21 Review of Systems <CASIMIRO ReynosoBC - Last Filed: 01/31/21 16:02> Review of Systems Narrative: GENERAL: See HPI HEENT: Denies sinus pain, ear pain, sore throat, difficulty swallowing, dizziness. RESPIRATORY: Denies dyspnea, cough, wheezing, hemoptysis, sputum. CARDIOVASCULAR: Denies chest pain, palpitations, orthopnea, edema, GASTROINTESTINAL: See HPI : Denies dysuria, frequency, incontinence, hematuria, urinary retention. MUSCULOSKELETAL: denies weakness, joint pain, or bony pain SKIN: Denies rash, skin lesions, or other NEUROLOGIC: Denies weakness, headache, numbness, change in speech, confusion, seizures, incoordination. PSYCHIATRIC: No concerning psychosocial issues. 12 point review of systems is negative except for those stated above Patient History <CADE Reynoso - Last Filed: 01/31/21 16:02> Medical History (Updated 01/31/21 @ 15:51 by CADE Reynoso) Chronic back pain Depression Epididymal cyst Headache Hydrocele, bilateral Migraine Neoplasm of uncertain behavior of epididymis Stroke Thoracic aortic aneurysm Surgical History (Updated 12/31/20 @ 21:07 by Antonia Smith) Anesthesia Previous back surgery S/P aortic aneurysm repair (~2014) S/P aorto-bifemoral bypass surgery (~2014) Family History (Updated 12/31/20 @ 21:08 by Antonia Smith) Grandmother Hypertension Father COPD (chronic obstructive pulmonary disease) Social History marital status: number of children: 2 Smoking Status: Current every day smoker Tobacco: How many years used: 33 alcohol intake: never caffeine: No Smoking Status: Current every day smoker alcohol intake frequency: 0-2 drinks per day Substance Use Type: marijuana Exam <CADE Reynoso - Last Filed: 01/31/21 16:02> Narrative Exam Narrative: GENERAL: This is a well-nourished, well-developed patient, in no acute distress HEAD: Atraumatic. Normocephalic. No temporal or scalp tenderness. EYES: Pupils equal round and reactive. Extraocular motions intact. No scleral icterus. No injection or drainage. ENT: Nose without bleeding, purulent drainage or septal hematoma. Wearing a mask Uvula midline. Airway patent. NECK: Trachea midline. No JVD or lymphadenopathy. Supple, nontender, no meningeal signs. CARDIOVASCULAR: Regular rate and rhythm RESPIRATORY: Clear to auscultation. Breath sounds equal bilaterally. No wheezes, rales, or rhonchi. No cough. No increased respiratory effort. No accessory muscle use. GASTROINTESTINAL: Abdomen soft, non-tender, nondistended. No hepato- splenomegaly, or palpable masses. No guarding. EXTREMITIES: No clubbing, cyanosis, or edema. No joint tenderness, effusion, or edema noted. BACK: Nontender without deformity or crepitance. No flank tenderness. NEURO: AOx3. SKIN: No rash or erythema on visible skin Initial Vital Signs Initial Vital Signs: Vital Signs Temperature 98.0 F 01/31/21 13:17 Pulse Rate 103 H 01/31/21 13:17 Respiratory Rate 16 01/31/21 13:17 Blood Pressure 155/92 H 01/31/21 13:17 Pulse Oximetry 96 01/31/21 13:17 <Victoriano Reeder DO - Last Filed: 01/31/21 17:44> Initial Vital Signs Initial Vital Signs: Vital Signs Temperature 98.0 F 01/31/21 13:17 Pulse Rate 103 H 01/31/21 13:17 Respiratory Rate 16 01/31/21 13:17 Blood Pressure 155/92 H 01/31/21 13:17 Pulse Oximetry 96 01/31/21 13:17 Scores <CADE Reynoso - Last Filed: 01/31/21 16:02> GCS [place] coma scale eye opening: Spontaneous [place] coma scale verbal response: Orientated [place] coma scale motor response: Obey commands [place] coma scale total score: 15 Course <CADE eRynoso - Last Filed: 01/31/21 16:02> Orders Ordered: ED Orders 01/31/21 13:15 Amylase Stat Complete Blood Count AUTO DIFF Stat Comprehensive Metabolic Panel Stat Lactate (Lactic Acid) Stat Lipase Stat NT-proBNP (BNP-Adult 18+) Stat Thyroid Stimulating Hormone Stat Troponin & CK Cardiac Panel Stat 01/31/21 13:52 EKG-12 Lead Stat 01/31/21 14:39 COVID19 - ADMIT (HISTOLOGY AIDE swab/PCR) Stat Discontinued Medications Amlodipine Besylate (Amlodipine 5 Mg Tablet) 5 mg PO NOW ONE Stop: 01/31/21 14:06 Last Admin: 01/31/21 14:31 Dose: 5 mg Documented by: CHATA Sodium Chloride (Normal Saline 0.9%) 1,000 mls @ 1,000 mls/hr IV BOLUS ONE Stop: 01/31/21 14:51 Last Infusion: 01/31/21 16:01 Dose: 0 mls/hr Documented by: Admin: 01/31/21 14:02 Dose: 1,000 mls/hr Documented by: CHATA Losartan Potassium (Losartan 25 Mg Tablet) 25 mg PO NOW ONE Stop: 01/31/21 14:06 Last Admin: 01/31/21 14:31 Dose: 25 mg Documented by: CHATA Metoprolol Succinate (Metoprolol Er 50 Mg Tablet) 100 mg PO NOW ONE Stop: 01/31/21 14:06 Last Admin: 01/31/21 14:31 Dose: 100 mg Documented by: CHATA Ondansetron HCl (Ondansetron 4 Mg/2 Ml Inj) 4 mg IV NOW ONE Stop: 01/31/21 13:53 Last Admin: 01/31/21 14:02 Dose: 4 mg Documented by: CHATA Vital Signs Vital signs: Vital Signs - 8 hr 01/31/21 13:17 01/31/21 16:01 01/31/21 16:18 Temperature 98.0 F Pulse Rate 103 H 60 Respiratory Rate 16 18 Blood Pressure 155/92 H 132/77 137/72 Pulse Oximetry 96 96 <Victoriano Reeder DO - Last Filed: 01/31/21 17:44> Orders Ordered: ED Orders 01/31/21 13:15 Amylase Stat Complete Blood Count AUTO DIFF Stat Comprehensive Metabolic Panel Stat Lactate (Lactic Acid) Stat Lipase Stat NT-proBNP (BNP-Adult 18+) Stat Thyroid Stimulating Hormone Stat Troponin & CK Cardiac Panel Stat 01/31/21 13:52 EKG-12 Lead Stat 01/31/21 14:39 COVID19 - ADMIT (HISTOLOGY AIDE swab/PCR) Stat Discontinued Medications Amlodipine Besylate (Amlodipine 5 Mg Tablet) 5 mg PO NOW ONE Stop: 01/31/21 14:06 Last Admin: 01/31/21 14:31 Dose: 5 mg Documented by: CHATA Sodium Chloride (Normal Saline 0.9%) 1,000 mls @ 1,000 mls/hr IV BOLUS ONE Stop: 01/31/21 14:51 Last Infusion: 01/31/21 16:01 Dose: 0 mls/hr Documented by: Admin: 01/31/21 14:02 Dose: 1,000 mls/hr Documented by: CHATA Losartan Potassium (Losartan 25 Mg Tablet) 25 mg PO NOW ONE Stop: 01/31/21 14:06 Last Admin: 01/31/21 14:31 Dose: 25 mg Documented by: CHATA Metoprolol Succinate (Metoprolol Er 50 Mg Tablet) 100 mg PO NOW ONE Stop: 01/31/21 14:06 Last Admin: 01/31/21 14:31 Dose: 100 mg Documented by: CHATA Ondansetron HCl (Ondansetron 4 Mg/2 Ml Inj) 4 mg IV NOW ONE Stop: 01/31/21 13:53 Last Admin: 01/31/21 14:02 Dose: 4 mg Documented by: CHATA Vital Signs Vital signs: Vital Signs - 8 hr 01/31/21 13:17 01/31/21 16:01 01/31/21 16:18 Temperature 98.0 F Pulse Rate 103 H 60 Respiratory Rate 16 18 Blood Pressure 155/92 H 132/77 137/72 Pulse Oximetry 96 96 MDM - Nausea/Vomiting/Diarrhea <WILLIAN Reynoso- - Last Filed: 01/31/21 16:02> Lab Data Attestation: I reviewed the patient's lab results. Result diagrams: 01/31/21 13:15 01/31/21 13:15 Labs: Lab Results 01/31/21 01/31/21 01/31/21 Range/Units 13:15 13:15 13:15 WBC 5.6 (4.5-11.0) X10^3/uL RBC 5.76 (4.5-5.9) X10^6/uL Hgb 16.6 (13.5-17.5) g/dL Hct 49.8 (41-53) % MCV 86.5 (80-100) fL MCH 28.9 (26-34) PG MCHC 33.4 (30-36) % RDW 14.3 (11.6-14.8) % Plt Count 239 (150-400) X10^3/uL Neut % (Auto) 70.6 (50-75) % Lymph % (Auto) 15.2 L (25-40) % [place] % (Auto) 13.8 (3-14) % Eos % (Auto) 0.2 L (2-4) % Baso % (Auto) 0.2 (0-2) % Neut # (Auto) 4000 (6138-0489) /uL Lymph # (Auto) 900 L (5914-2814) /uL [place] # (Auto) 800 (0-900) /uL Eos # (Auto) 0 (0-450) /uL Baso # (Auto) 0 (0-100) /uL Sodium (137-145) mmol/L Potassium (3.4-5.1) mmol/L Chloride (98-107) mmol/L Carbon Dioxide (22-32) mmol/L BUN (9-20) mg/dL Creatinine (0.66-1.25) mg/dL Estimated GFR (>60) mL/min BUN/Creatinine Ratio (6-22) Glucose (70-100) mg/dL Lactate (0.7-2.1) mmol/L Calcium (8.4-10.2) mg/dL Total Bilirubin (0.2-1.3) mg/dL AST (17-59) IU/L ALT (<50) IU/L Alkaline Phosphatase (38-126) U/L Total Creatine Kinase 78 (55-170) U/L CK-MB (CK-2) TNP CK-MB (CK-2) Rel Index TNP Troponin I < 0.012 (0.01-0.034) ng/mL NT-Pro-B Natriuret Pep 162 H (<125) pg/mL Total Protein (6.3-8.2) g/dL Albumin (3.5-5.0) g/dL Globulin (1.7-4.1) g/dL Albumin/Globulin Ratio (1.0-2.8) Amylase 67 (30-110) U/L Lipase 198 (23-300) U/L TSH 1.08 (0.47-4.68) uIU/mL SARS-CoV-2 (PCR) (Negative) 01/31/21 01/31/21 01/31/21 Range/Units 13:15 13:15 14:39 WBC (4.5-11.0) X10^3/uL RBC (4.5-5.9) X10^6/uL Hgb (13.5-17.5) g/dL Hct (41-53) % MCV (80-100) fL MCH (26-34) PG MCHC (30-36) % RDW (11.6-14.8) % Plt Count (150-400) X10^3/uL Neut % (Auto) (50-75) % Lymph % (Auto) (25-40) % [place] % (Auto) (3-14) % Eos % (Auto) (2-4) % Baso % (Auto) (0-2) % Neut # (Auto) (1583-2289) /uL Lymph # (Auto) (8306-5908) /uL [place] # (Auto) (0-900) /uL Eos # (Auto) (0-450) /uL Baso # (Auto) (0-100) /uL Sodium 135 L (137-145) mmol/L Potassium 4.5 (3.4-5.1) mmol/L Chloride 103 (98-107) mmol/L Carbon Dioxide 24 (22-32) mmol/L BUN 21 H (9-20) mg/dL Creatinine 1.35 H (0.66-1.25) mg/dL Estimated GFR 55.3 L (>60) mL/min BUN/Creatinine Ratio 15.6 (6-22) Glucose 101 H (70-100) mg/dL Lactate 1.1 (0.7-2.1) mmol/L Calcium 8.8 (8.4-10.2) mg/dL Total Bilirubin 0.4 (0.2-1.3) mg/dL AST 41 (17-59) IU/L ALT 30 (<50) IU/L Alkaline Phosphatase 80 (38-126) U/L Total Creatine Kinase (55-170) U/L CK-MB (CK-2) CK-MB (CK-2) Rel Index Troponin I (0.01-0.034) ng/mL NT-Pro-B Natriuret Pep (<125) pg/mL Total Protein 7.4 (6.3-8.2) g/dL Albumin 3.9 (3.5-5.0) g/dL Globulin 3.5 (1.7-4.1) g/dL Albumin/Globulin Ratio 1.1 (1.0-2.8) Amylase (30-110) U/L Lipase (23-300) U/L TSH (0.47-4.68) uIU/mL SARS-CoV-2 (PCR) Positive H (Negative) MDM Narrative Medical decision making narrative: The patient is a 55-year-old male who presents with a chief complaint of generalized weakness for the past 10 days. Overall lab work is reassuring, creatinine is within normal limits for the patient given his previous labs. However he does test positive for coronavirus today, which likely is the cause of his symptoms. However it is reassuring that his no chest pain, no shortness of breath and is 96% on room air in the emergency department. I discussed at length rest, isolation, [id number] medications as needed and able. I encouraged him to get the coronavirus vaccination when he is eligible. I encouraged him to take his daily medications even if he does not feel ?up to it to help control his blood pressure. Patient was instructed to come back to the emergency department for any acute concerns such as chest pain shortness of breath etcetera. I encouraged follow-up with primary care provider in the next few days. Patient has no questions or concerns upon discharge states understanding return precautions as well as follow-up care. <Victoriano Reeder, DO - Last Filed: 01/31/21 17:44> Lab Data Labs: Lab Results 01/31/21 01/31/21 01/31/21 Range/Units 13:15 13:15 13:15 WBC 5.6 (4.5-11.0) X10^3/uL RBC 5.76 (4.5-5.9) X10^6/uL Hgb 16.6 (13.5-17.5) g/dL Hct 49.8 (41-53) % MCV 86.5 (80-100) fL MCH 28.9 (26-34) PG MCHC 33.4 (30-36) % RDW 14.3 (11.6-14.8) % Plt Count 239 (150-400) X10^3/uL Neut % (Auto) 70.6 (50-75) % Lymph % (Auto) 15.2 L (25-40) % [place] % (Auto) 13.8 (3-14) % Eos % (Auto) 0.2 L (2-4) % Baso % (Auto) 0.2 (0-2) % Neut # (Auto) 4000 (2855-1408) /uL Lymph # (Auto) 900 L (1648-0928) /uL [place] # (Auto) 800 (0-900) /uL Eos # (Auto) 0 (0-450) /uL Baso # (Auto) 0 (0-100) /uL Sodium (137-145) mmol/L Potassium (3.4-5.1) mmol/L Chloride (98-107) mmol/L Carbon Dioxide (22-32) mmol/L BUN (9-20) mg/dL Creatinine (0.66-1.25) mg/dL Estimated GFR (>60) mL/min BUN/Creatinine Ratio (6-22) Glucose (70-100) mg/dL Lactate (0.7-2.1) mmol/L Calcium (8.4-10.2) mg/dL Total Bilirubin (0.2-1.3) mg/dL AST (17-59) IU/L ALT (<50) IU/L Alkaline Phosphatase (38-126) U/L Total Creatine Kinase 78 (55-170) U/L CK-MB (CK-2) TNP CK-MB (CK-2) Rel Index TNP Troponin I < 0.012 (0.01-0.034) ng/mL NT-Pro-B Natriuret Pep 162 H (<125) pg/mL Total Protein (6.3-8.2) g/dL Albumin (3.5-5.0) g/dL Globulin (1.7-4.1) g/dL Albumin/Globulin Ratio (1.0-2.8) Amylase 67 (30-110) U/L Lipase 198 (23-300) U/L TSH 1.08 (0.47-4.68) uIU/mL SARS-CoV-2 (PCR) (Negative) 01/31/21 01/31/21 01/31/21 Range/Units 13:15 13:15 14:39 WBC (4.5-11.0) X10^3/uL RBC (4.5-5.9) X10^6/uL Hgb (13.5-17.5) g/dL Hct (41-53) % MCV (80-100) fL MCH (26-34) PG MCHC (30-36) % RDW (11.6-14.8) % Plt Count (150-400) X10^3/uL Neut % (Auto) (50-75) % Lymph % (Auto) (25-40) % [place] % (Auto) (3-14) % Eos % (Auto) (2-4) % Baso % (Auto) (0-2) % Neut # (Auto) (1940-7037) /uL Lymph # (Auto) (9224-9568) /uL [place] # (Auto) (0-900) /uL Eos # (Auto) (0-450) /uL Baso # (Auto) (0-100) /uL Sodium 135 L (137-145) mmol/L Potassium 4.5 (3.4-5.1) mmol/L Chloride 103 (98-107) mmol/L Carbon Dioxide 24 (22-32) mmol/L BUN 21 H (9-20) mg/dL Creatinine 1.35 H (0.66-1.25) mg/dL Estimated GFR 55.3 L (>60) mL/min BUN/Creatinine Ratio 15.6 (6-22) Glucose 101 H (70-100) mg/dL Lactate 1.1 (0.7-2.1) mmol/L Calcium 8.8 (8.4-10.2) mg/dL Total Bilirubin 0.4 (0.2-1.3) mg/dL AST 41 (17-59) IU/L ALT 30 (<50) IU/L Alkaline Phosphatase 80 (38-126) U/L Total Creatine Kinase (55-170) U/L CK-MB (CK-2) CK-MB (CK-2) Rel Index Troponin I (0.01-0.034) ng/mL NT-Pro-B Natriuret Pep (<125) pg/mL Total Protein 7.4 (6.3-8.2) g/dL Albumin 3.9 (3.5-5.0) g/dL Globulin 3.5 (1.7-4.1) g/dL Albumin/Globulin Ratio 1.1 (1.0-2.8) Amylase (30-110) U/L Lipase (23-300) U/L TSH (0.47-4.68) uIU/mL SARS-CoV-2 (PCR) Positive H (Negative) Discharge Plan Departure Patient Disposition: Home Clinical Impression: COVID-19 Instructions: DI for COVID-19 (Suspected or Confirmed ), Can COVID-19 be prevented? Activity Restrictions/Additional Instructions: Thank you for trusting us with your care today. As discussed, you tested positive for coronavirus. Please rest, use over-the-c ounter medications as needed and able. Please continue taking your prescription medications. As discussed then 2 been symptomatic for 10 days, you should hopefully be feeling better soon. Please remember to isolate, wash your hands, wash high touch surfaces etcetera Today your labs are reassuring, your vitals are very good, and you do not have any chest pain or shortness of breath. Please come back to the emergency department for any acute concerns such as chest pain, significant shortness of breath etcetera I suggest continuing your baby aspirin per day. You can always by an hemi-tal-krvrmks pulse ox to watch your oxygen levels Prescriptions: No Action amlodipine 5 mg tablet 5 mg PO DAILY Qty: 90 RF: 3 losartan 25 mg tablet 25 mg PO DAILY Qty: 90 RF: 3 metoprolol succinate 100 mg tablet extended release 24 hr 100 mg PO BID Qty: 180 RF: 3 aspirin 81 mg tablet,chewable 81 mg PO DAILY Qty: 60 RF: 0 Referrals: Renan Mata MD [Primary Care Provider] - <Victoriano Reeder, DO - Last Filed: 01/31/21 17:44> Cosign ED Attending Cosignature Attestation: Dr Reeder Co-Sign Statement: I was cruz albarran for consultation during this patient's emergency department visit. This chart is signed by myself for administrative purposes only. I did not have direct contact with this patient during this visit. They were seen independently by the APC.
[2021-01-31] MEDS: METOPROLOL ER 50 MG TABLET 100 MG PO (14:31)
[2021-01-31] MEDS: LOSARTAN 25 MG TABLET PO (14:31)
[2021-01-31] MEDS: AMLODIPINE 5 MG TABLET PO (14:31)
[2021-01-31 14:52] LABS: Amylase 67 U/L (30-110); Creatine Kinase 78 U/L (55-170); Lipase 198 U/L (23-300)
[2021-01-31 15:05] LABS: NT-proBNP (BNP-Adult 18+) 162 pg/mL (<125); Troponin I < 0.012 ng/mL (0.01-0.034)
[2021-01-31 15:07] LABS: Lactate (Lactic Acid) 1.1 mmol/L (0.7-2.1)
[2021-01-31 15:08] LABS: Alanine Aminotransferase 30 IU/L (<50); Albumin 3.9 g/dL (3.5-5.0); Albumin Globulin Ratio 1.1 (1.0-2.8); Alkaline Phosphatase 80 U/L (38-126); Aspartate Aminotransferase 41 IU/L (17-59); BUN Creatinine Ratio 15.6 (6-22); Bilirubin Total 0.4 mg/dL (0.2-1.3); Blood Urea Nitrogen 21 mg/dL (9-20); Calcium 8.8 mg/dL (8.4-10.2); Carbon Dioxide 24 mmol/L (22-32); Chloride 103 mmol/L (98-107); Estimated Glomerular Filt Rate 55.3 mL/min (>60); Globulin 3.5 g/dL (1.7-4.1); Glucose 101 mg/dL (70-100); HEMOLYSIS 17 (0-50); Potassium 4.5 mmol/L (3.4-5.1); Sodium 135 mmol/L (137-145); Total Protein 7.4 g/dL (6.3-8.2)
[2021-01-31 15:24] LABS: Thyroid Stimulating Hormone 1.08 uIU/mL (0.47-4.68)
[2021-01-31 15:24] LABS: COVID19 - ADMIT (NP swab/PCR) POSITIVE (Negative)
[2021-01-31 16:01] VITALS: BP 132/77
[2021-01-31 16:18] VITALS: BP 137/72; PULSE 60; RESP 18; O2SAT 96
== END 2021-01-31 16:18 | disposition home or self-care (01) ==
PROVIDERS: Emergency Provider Nurse Practitioner Family; PCP Internal Medicine
DX: U07.1 COVID-19 (principal); R19.7 Diarrhea, unspecified; R53.83 Other fatigue; R51.9 Headache, unspecified
CPT/HCPCS: 36415; 80053; 82150; 82550; 83605; 83690; 83880; 84443; 84484; 85025; 87635; 93005; 96361; 96374; 99284; C9803; J2405

== ENCOUNTER 2022-02-17 15:25 | Emergency (ER) | payer OTHER, MEDICAID, SELFPAY ==
[2022-02-17] VITALS (8 sets, daily range): BP systolic 117–158; BP diastolic 75–98; PULSE 99–103; RESP 16–25; TEMP 36.2; O2SAT 97–99; BMI 25.1
--- NOTE | 2022-02-17 16:12 | DI.US.S_ITS ---
PROCEDURE: US PERIPH VENOUS UP EXTREM RT INDICATIONS: known clot, sx getting worse. ? extention??? TECHNIQUE: Real-time imaging, as well as color and pulse Doppler interrogation, was performed of the right upper extremity deep veins from the inferior neck to the antecubital fossa. COMPARISON: None. FINDINGS: The internal jugular vein, visualized portions of the subclavian vein, axillary, and brachial veins are free of intraluminal thrombus. Where physically possible, the veins are normally compressible. Color and pulse Doppler demonstrate normal intraluminal flow, with expected phasicity and pulsatility. Within the cephalic vein at the level of the elbow/antecubital fossa, there is a focus of thrombus seen that measures 5.7 cm in length. This examination is limited by involuntary motion artifact. IMPRESSION: Negative for deep venous thrombosis. Superficial venous thrombosis can be seen involving the right cephalic vein at the level of the elbow/antecubital fossa. Note: Concordant preliminary findings given by the steamer operator upon the completion of the examination to Dr. Eddy. Dictated by: Charlie Vivar M.D. on 02/17/2022 at 16:42 Approved by: Charlie Vivar M.D. on 02/17/2022 at 16:43
[2022-02-17] MEDS: OXYCODONE/ACETAMINOPHEN 5/325 TABLET 2 TAB PO (16:33)
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
[2022-02-17] MEDS: OXYCODONE IR 5 MG TABLET 10 MG PO (18:04)
== END 2022-02-17 18:20 | disposition home or self-care (01) ==
PROVIDERS: Emergency Provider Emergency Medicine; PCP Internal Medicine
DX: I80.8 Phlebitis and thrombophlebitis of other sites (principal); G89.18 Other acute postprocedural pain
CPT/HCPCS: 93971; 99283

== ENCOUNTER 2022-02-24 20:02 | Emergency (ER) | payer OTHER, MEDICAID, SELFPAY ==
[2022-02-24] VITALS (13 sets, daily range): BP systolic 88–115; BP diastolic 50–62; PULSE 101–110; RESP 10–27; TEMP 36; O2SAT 79–97; BMI 25.1
--- NOTE | 2022-02-24 20:38 | DI.RAD.S_ITS ---
PROCEDURE: XR ACUTE ABDOMEN SERIES INDICATIONS: Abdominal pain TECHNIQUE: One view chest and two views of the abdomen were acquired. COMPARISON: Merged With [facility], , CHEST 1 VIEW, 11/09/2015, 22:17. FINDINGS: Surgical changes and devices: Postsurgical changes are redemonstrated in the mediastinum. An endovascular stent graft is demonstrated within the descending thoracic aorta. Chest: There is a large masslike opacity projecting over the left upper lung zone measuring up to approximately 10 cm. Right lung is clear. Heart size is normal. No pleural effusions. No pneumoperitoneum. Abdomen: There is diffuse gaseous distention of small and large bowel loops including gas within the rectum. No suspicious calcifications. Bones: No suspicious bony lesions. There is dysmorphic appearance of the left hip with severe degenerative changes. IMPRESSION: 1. Large masslike opacity projecting over the left upper lung zone. The findings are nonspecific and may represent a pulmonary mass, masslike consolidation, or large aneurysm arising from the aortic arch. Recommend further evaluation with chest CT or comparison with prior outside imaging if available. 2. Diffuse gas distention of small and large bowel loops in the abdomen suggestive of an ileus. Findings discussed with Dr. Vera on 02/24/2022 at 9:35 p.m.. Dictated by: Korey Jeffery M.D. on 02/24/2022 at 21:34 Approved by: Korey Jeffery M.D. on 02/24/2022 at 21:41
[2022-02-24 21:10] LABS: INR 1.2 (0.9-1.3); Prothrombin Time 13.8 SECONDS (10.1-12.7)
--- NOTE | 2022-02-24 21:10 | ED_ITS ---
HPI - Abdominal Pain General Chief Complaint: Abdominal Pain Stated Complaint: STOMACH ISSUES NOT EATING DEHYDRATION Time Seen by Provider: 02/24/22 20:34 History of Present Illness HPI narrative: 56M smoker with extensive medical history including HTN, AAA with repair, dissection with repair, recent RUE DVT presents with increasing episodes of abdominal pain, nausea and poor appetite over the past few days. He denies any chest pain or shortness of breath and he is not dizzy nor weak or lightheaded. He denies any urinary complaints such as dysuria, frequency or urgency and denies any constipation but has had continued loose stools for least many weeks. He has had no fever or chills. He denies any syncope. He states he has been taking his medications as directed. Related Data Home Medications Medication Instructions Recorded Confirmed oxycodone 5 mg tablet 10 mg PO Q6H PRN 02/05/22 02/05/22 Previous Rx's Medication Instructions Recorded aspirin 81 mg chewable tablet 81 mg PO DAILY #60 tabs 09/18/18 amlodipine 5 mg tablet 5 mg PO DAILY #90 tabs 11/16/20 metoprolol succinate 100 mg 100 mg PO BID #180 tabs 11/16/20 tablet,extended release 24 hr losartan 50 mg tablet 50 mg PO DAILY #90 tabs 05/21/21 trazodone 50 mg tablet 50 - 100 mg PO BEDTIME PRN 07/22/21 insomnia #60 tabs oxycodone 5 mg tablet 5 mg PO Q6H PRN pain #50 tabs 02/17/22 ondansetron 4 mg disintegrating 4 mg PO TID-QID PRN nausea and 02/25/22 tablet vomiting #10 tabs oxycodone 5 mg tablet 5 mg PO Q4-6H PRN pain #20 tabs 02/25/22 pantoprazole 40 mg tablet,delayed 40 mg PO DAILY #30 tabs 02/25/22 release (Protonix) Allergies Allergy/AdvReac Type Severity Reaction Status Date / Time No Known Drug Allergies Allergy Verified 02/24/22 20:31 Review of Systems Review of Systems Narrative: GENERAL: See HPI HEENT: Denies sinus pain, ear pain, sore throat, difficulty swallowing, dizziness. RESPIRATORY: Denies dyspnea, cough, wheezing, hemoptysis, sputum. CARDIOVASCULAR: Denies chest pain, palpitations, orthopnea, edema, GASTROINTESTINAL: See HPI : Denies dysuria, frequency, incontinence, hematuria, urinary retention. MUSCULOSKELETAL: denies weakness, joint pain, or bony pain SKIN: Denies rash, skin lesions, or other NEUROLOGIC: Denies weakness, headache, numbness, change in speech, confusion, seizures, incoordination. PSYCHIATRIC: No concerning psychosocial issues. 12 point review of systems is negative except for those stated above Patient History Medical History Ascending aortic aneurysm Chronic back pain COVID-19 Depression Epididymal cyst Essential hypertension Headache Hydrocele, bilateral Migraine Neoplasm of uncertain behavior of epididymis Stroke Thoracic aortic aneurysm Surgical History Anesthesia Previous back surgery S/P aortic aneurysm repair (~2014) S/P aorto-bifemoral bypass surgery (~2014) Family History Grandmother Hypertension Father COPD (chronic obstructive pulmonary disease) Social History marital status: number of children: 2 Smoking Status: Current every day smoker Tobacco: How many years used: 33 alcohol intake: never caffeine: No Smoking Status: Current every day smoker alcohol intake frequency: 0-2 drinks per day Substance Use Type: marijuana Exam Narrative Exam Narrative: GENERAL: [56] year old patient appears stated age. Well-developed patient, in moderate distress, rubbing his abdomen, holding an emesis bag HEAD: Atraumatic. Normocephalic. EYES: Pupils equal round and reactive. Extraocular motions intact. No scleral icterus. No injection or drainage. ENT: Nose without bleeding, purulent drainage. Throat without erythema, tonsillar hypertrophy or exudate. Airway patent. NECK: Trachea midline. Non tender CARDIOVASCULAR: Regular rate and rhythm without murmurs, gallops, or rubs. RESPIRATORY: Clear to auscultation. Breath sounds equal bilaterally. No wheezes, rales, or rhonchi. GASTROINTESTINAL: Abdomen soft, mild generalized tenderness, bowel sounds present in all 4 quadrants, nondistended. EXTREMITIES: No edema or joint tenderness. BACK: Nontender without deformity or crepitance. No flank tenderness. NEURO: AOx3. SKIN: No rash or erythema of visible areas Initial Vital Signs Initial Vital Signs: Vital Signs Temperature 96.8 F L 02/24/22 20:25 Pulse Rate 109 H 02/24/22 20:25 Respiratory Rate 16 02/24/22 20:25 Blood Pressure 97/62 02/24/22 20:25 Pulse Oximetry 96 02/24/22 20:25 Oxygen Delivery Method 02/24/22 20:25 Course Orders Ordered: ED Orders 02/24/22 21:08 COVID19 -Nasal RAPID/Pre-Proc Stat 02/24/22 21:14 Blood Culture Stat 02/24/22 22:35 CT angio chest abdomen pelvis Stat Discontinued Medications Hydromorphone HCl (Hydromorphone 1 Mg Inj) 1 mg IV NOW ONE Stop: 02/24/22 22:36 Last Admin: 02/24/22 22:46 Dose: 1 mg Documented By: ABY Hydromorphone HCl (Hydromorphone 1 Mg Inj) 1 mg IV NOW ONE Stop: 02/25/22 01:53 Last Admin: 02/25/22 01:57 Dose: 1 mg Documented By: DEVIN Sodium Chloride (Normal Saline 0.9%) 1,000 mls @ 1,000 mls/hr IV BOLUS ONE Stop: 02/24/22 23:34 Last Infusion: 02/25/22 00:24 Dose: 0 mls/hr Documented By: Admin: 02/24/22 22:49 Dose: 1,000 mls/hr Documented By: ABY Lactated Ringer's (Lactated Ringers) 1,000 mls @ 1,000 mls/hr IV BOLUS ONE Stop: 02/25/22 05:18 Last Admin: 02/25/22 04:59 Dose: 1,000 mls/hr Documented By: REGAN Ondansetron HCl (Ondansetron 4 Mg/2 Ml Inj) 4 mg IV NOW ONE Stop: 02/24/22 22:36 Last Admin: 02/24/22 22:48 Dose: 4 mg Documented By: ABY Ondansetron HCl (Ondansetron 4 Mg Odt Prepack) 1 bottle MISC SEEINSTR ONE Stop: 02/25/22 04:20 Oxycodone/Acetaminophen (Oxycodone/Apap 5/325 Prepack) 1 bottle MISC SEEINSTR ONE Stop: 02/25/22 04:20 Pantoprazole Sodium (Pantoprazole 40 Mg Vial) 40 mg IV NOW ONE Stop: 02/24/22 22:36 Last Admin: 02/24/22 22:48 Dose: 40 mg Documented By: ABY Reevaluation(s) Reevaluation #1: Patient's symptoms well control, patient having minimal pain, vital signs s table, patient tolerating orals Consultations Consultation #1: discussed case with thoracic surgery at [facility], reviewed case, CTA obtained here demonstrates chronic findings, recommends also speaking with Cardio/Vads attending Consultation #2: discussed with Dr. Mederos ([facility]) and we have reviewed the case. We have discussed the patient's history and physical exam as well as imaging and labs from today and reviewed, and compared to those results from his recent hospitalization and surgical interventions. None of the findings on our imaging represent any new findings or evidence of significant findings. Vital Signs Vital signs: Vital Signs - 8 hr 02/24/22 22:00 02/24/22 23:36 02/24/22 22:30 Pulse Rate 105 H 104 H 110 H Respiratory Rate 21 12 27 H Blood Pressure 100/50 L Pulse Oximetry 94 94 97 Oxygen Delivery Method Room Air 02/24/22 23:04 02/24/22 23:08 02/24/22 23:08 Pulse Rate 109 H 107 H Respiratory Rate 24 Blood Pressure 115/61 Pulse Oximetry 94 94 Oxygen Delivery Method 02/24/22 23:30 02/24/22 23:30 02/24/22 23:31 Pulse Rate 104 H 104 H Respiratory Rate 10 L 13 Blood Pressure 88/52 L Pulse Oximetry 93 93 Oxygen Delivery Method 02/24/22 23:32 02/24/22 23:32 02/24/22 23:35 Pulse Rate 104 H Respiratory Rate 21 Blood Pressure 88/53 L 100/60 Pulse Oximetry 93 Oxygen Delivery Method 02/24/22 23:35 02/25/22 00:00 02/25/22 00:00 Pulse Rate 105 H 104 H Respiratory Rate 20 13 Blood Pressure 95/54 L Pulse Oximetry 92 93 Oxygen Delivery Method 02/25/22 00:42 02/25/22 00:30 02/25/22 00:30 Pulse Rate 105 H 105 H Respiratory Rate 12 21 Blood Pressure 113/52 L 89/53 L Pulse Oximetry 91 Oxygen Delivery Method 02/25/22 00:42 02/25/22 00:42 02/25/22 01:00 Pulse Rate 107 H Respiratory Rate 24 Blood Pressure 113/71 114/72 Pulse Oximetry 95 Oxygen Delivery Method 02/25/22 01:00 02/25/22 01:30 02/25/22 01:30 Pulse Rate 101 H 102 H Respiratory Rate 19 Blood Pressure 129/68 Pulse Oximetry 93 94 Oxygen Delivery Method 02/25/22 02:00 02/25/22 02:00 02/25/22 02:30 Pulse Rate 102 H Respiratory Rate Blood Pressure 94/55 L 85/52 L Pulse Oximetry 92 Oxygen Delivery Method 02/25/22 02:30 02/25/22 02:55 02/25/22 02:55 Pulse Rate 108 H 105 H Respiratory Rate Blood Pressure 109/67 Pulse Oximetry 89 L 93 Oxygen Delivery Method 02/25/22 03:00 02/25/22 03:00 02/25/22 03:30 Pulse Rate 104 H Respiratory Rate Blood Pressure 110/65 99/60 Pulse Oximetry 92 Oxygen Delivery Method 02/25/22 03:30 02/25/22 04:00 02/25/22 04:00 Pulse Rate 104 H 102 H Respiratory Rate Blood Pressure 128/70 Pulse Oximetry 90 L 96 Oxygen Delivery Method 02/25/22 04:30 02/25/22 04:30 Pulse Rate 107 H Respiratory Rate Blood Pressure 102/58 L Pulse Oximetry 94 Oxygen Delivery Method MDM - Abdominal Pain Lab Data Result diagrams: 02/24/22 20:46 02/24/22 20:46 Labs: Lab Results 02/24/22 02/24/22 02/24/22 Range/Units 20:46 20:46 20:46 WBC 6.2 (4.5-11.0) X10^3/uL RBC 4.13 L (4.5-5.9) X10^6/uL Hgb 11.6 L (13.5-17.5) g/dL Hct 34.6 L (41-53) % MCV 83.9 (80-100) fL MCH 28.2 (26-34) PG MCHC 33.6 (30-36) % RDW 15.9 H (11.6-14.8) % Plt Count 397 (150-400) X10^3/uL Neut % (Auto) 69.9 (50-75) % Lymph % (Auto) 10.2 L (25-40) % [place] % (Auto) 16.5 H (3-14) % Eos % (Auto) 2.8 (2-4) % Baso % (Auto) 0.6 (0-2) % Neut # (Auto) 4300 (4763-2631) /uL Lymph # (Auto) 600 L (9647-5105) /uL [place] # (Auto) 1000 H (0-900) /uL Eos # (Auto) 200 (0-450) /uL Baso # (Auto) 0 (0-100) /uL PT (10.1-12.7) SECONDS INR (0.9-1.3) APTT (26.4-36.2) SECONDS Sodium 136 L (137-145) mmol/L Potassium 4.7 (3.4-5.1) mmol/L Chloride 99 (98-107) mmol/L Carbon Dioxide 29 (22-32) mmol/L BUN 25 H (9-20) mg/dL Creatinine 1.01 (0.66-1.25) mg/dL Estimated GFR > 60 (>60) mL/min BUN/Creatinine Ratio 24.8 H (6-22) Glucose 101 H (70-100) mg/dL Lactate (0.7-2.1) mmol/L Calcium 9.2 (8.4-10.2) mg/dL Magnesium (1.6-2.3) mg/dL Total Bilirubin 0.5 (0.2-1.3) mg/dL AST 28 (17-59) IU/L ALT 33 (<50) IU/L Alkaline Phosphatase 119 (38-126) U/L Total Creatine Kinase (55-170) U/L CK-MB (CK-2) CK-MB (CK-2) Rel Index Troponin I (0.01-0.034) ng/mL C-Reactive Protein 12.9 H (<1.0) mg/dL NT-Pro-B Natriuret Pep (<125) pg/mL Total Protein 8.2 (6.3-8.2) g/dL Albumin 4.1 (3.5-5.0) g/dL Globulin 4.1 (1.7-4.1) g/dL Albumin/Globulin Ratio 1.0 (1.0-2.8) Lipase (23-300) U/L SARS-CoV-2 (PCR) (Negative) Blood Type O Positive Antibody Screen Negative 02/24/22 02/24/22 02/24/22 Range/Units 20:46 20:46 20:46 WBC (4.5-11.0) X10^3/uL RBC (4.5-5.9) X10^6/uL Hgb (13.5-17.5) g/dL Hct (41-53) % MCV (80-100) fL MCH (26-34) PG MCHC (30-36) % RDW (11.6-14.8) % Plt Count (150-400) X10^3/uL Neut % (Auto) (50-75) % Lymph % (Auto) (25-40) % [place] % (Auto) (3-14) % Eos % (Auto) (2-4) % Baso % (Auto) (0-2) % Neut # (Auto) (3931-1628) /uL Lymph # (Auto) (6163-4508) /uL [place] # (Auto) (0-900) /uL Eos # (Auto) (0-450) /uL Baso # (Auto) (0-100) /uL PT 13.8 H (10.1-12.7) SECONDS INR 1.2 (0.9-1.3) APTT 31 (26.4-36.2) SECONDS Sodium (137-145) mmol/L Potassium (3.4-5.1) mmol/L Chloride (98-107) mmol/L Carbon Dioxide (22-32) mmol/L BUN (9-20) mg/dL Creatinine (0.66-1.25) mg/dL Estimated GFR (>60) mL/min BUN/Creatinine Ratio (6-22) Glucose (70-100) mg/dL Lactate 1.0 (0.7-2.1) mmol/L Calcium (8.4-10.2) mg/dL Magnesium 2.0 (1.6-2.3) mg/dL Total Bilirubin (0.2-1.3) mg/dL AST (17-59) IU/L ALT (<50) IU/L Alkaline Phosphatase (38-126) U/L Total Creatine Kinase 35 L (55-170) U/L CK-MB (CK-2) TNP CK-MB (CK-2) Rel Index TNP Troponin I < 0.012 (0.01-0.034) ng/mL C-Reactive Protein (<1.0) mg/dL NT-Pro-B Natriuret Pep 1110 H (<125) pg/mL Total Protein (6.3-8.2) g/dL Albumin (3.5-5.0) g/dL Globulin (1.7-4.1) g/dL Albumin/Globulin Ratio (1.0-2.8) Lipase 36 (23-300) U/L SARS-CoV-2 (PCR) (Negative) Blood Type Antibody Screen 02/24/22 Range/Units 21:08 WBC (4.5-11.0) X10^3/uL RBC (4.5-5.9) X10^6/uL Hgb (13.5-17.5) g/dL Hct (41-53) % MCV (80-100) fL MCH (26-34) PG MCHC (30-36) % RDW (11.6-14.8) % Plt Count (150-400) X10^3/uL Neut % (Auto) (50-75) % Lymph % (Auto) (25-40) % [place] % (Auto) (3-14) % Eos % (Auto) (2-4) % Baso % (Auto) (0-2) % Neut # (Auto) (9115-0870) /uL Lymph # (Auto) (7511-7590) /uL [place] # (Auto) (0-900) /uL Eos # (Auto) (0-450) /uL Baso # (Auto) (0-100) /uL PT (10.1-12.7) SECONDS INR (0.9-1.3) APTT (26.4-36.2) SECONDS Sodium (137-145) mmol/L Potassium (3.4-5.1) mmol/L Chloride (98-107) mmol/L Carbon Dioxide (22-32) mmol/L BUN (9-20) mg/dL Creatinine (0.66-1.25) mg/dL Estimated GFR (>60) mL/min BUN/Creatinine Ratio (6-22) Glucose (70-100) mg/dL Lactate (0.7-2.1) mmol/L Calcium (8.4-10.2) mg/dL Magnesium (1.6-2.3) mg/dL Total Bilirubin (0.2-1.3) mg/dL AST (17-59) IU/L ALT (<50) IU/L Alkaline Phosphatase (38-126) U/L Total Creatine Kinase (55-170) U/L CK-MB (CK-2) CK-MB (CK-2) Rel Index Troponin I (0.01-0.034) ng/mL C-Reactive Protein (<1.0) mg/dL NT-Pro-B Natriuret Pep (<125) pg/mL Total Protein (6.3-8.2) g/dL Albumin (3.5-5.0) g/dL Globulin (1.7-4.1) g/dL Albumin/Globulin Ratio (1.0-2.8) Lipase (23-300) U/L SARS-CoV-2 (PCR) Negative (Negative) Blood Type Antibody Screen Imaging Data CT scan - chest: Radiologist's Impression: [place] [address] CT Scan Report Signed Patient: Soto Blount MR#: [id number] : 1965 Acct:[id number] Age/Sex: 56 / M Date of Service: 02/24/22 Loc: ED Accession Number: [id number] ?? Procedure: CT angio chest abdomen pelvis Ordering Provider: Telly Vera D.O. PROCEDURE:? CT ANGIO CHEST ABDOMEN PELVIS ? INDICATIONS:? abd pain, hypotension, recent aneurysm repair ? TECHNIQUE:? Precontrast 5 mm thick sections acquired from the lung apices to the iliac crests.? After the administration of intravenous contrast, 2.5 mm thick sections again acquired from the lung apices to the iliac crests.? Maximum intensity projection (MIP) oblique sagittal and coronal reformats were then acquired.? For radiation dose reduction, the following was used:? automated exposure control.? ? COMPARISON:? [facility], CT, ANGIOGRAPHY CHEST AND ABDOMEN, 10/18/2015, 0:59.? [facility], CR, XR ACUTE ABDOMEN SERIES, 02/24/2022, 20:28.? [facility], CT, CT ANGIO ABD AORTA RUNOFF, 09/18/2018, 2:02. ? FINDINGS:? Image quality:? Excellent.? ? AORTA:? There are postsurgical changes within the ascending thoracic aorta redemonstrated status post prior surgical repair of an ascending aortic dissection with reimplantation of the great vessels.? There is mild aneurysmal dilatation and a dissection within the right brachiocephalic artery redemonstrated.? The right vertebral artery appears to arise from the false lumen.? The right internal mammary artery arises from the true l umen.? There is a re-entry tear within the right subclavian artery.? The remaining great vessels appear patent and normal in caliber without dissection. ? There is an endovascular stent graft within the aortic arch and descending thoracic aorta.? The excluded aneurysm sac measures up to approximately 6.5 cm at the level of the distal aortic arch.? There is an associated contained rupture extending laterally into the left upper lobe with a collection measuring up to 9.6 x 7.3 cm demonstrated containing internal areas of gas and likely thrombosed blood product. ? The abdominal aorta demonstrates aneurysmal dilatation, measuring up to 3.6 cm in anteroposterior dimension, similar in size compared to the prior study.? There is an aortic dissection redemonstrated with the true lumen continuing from the thoracic aorta stent graft.? The dissection extends into the bilateral common iliac arteries.? There is a re-entry tear within the left common iliac artery and a re-entry tear in the right external iliac artery.? The dissection within the right external iliac artery is new compared to the prior study of 09/18/2018.? There has also been increase in size of the iliac arteries, with the right common iliac artery measuring up to 2.4 cm compared to 2.2 cm on the prior study.? The right external iliac artery measures up to 1.2 cm compared to 1.0 cm previously.? The left common iliac artery measures up to 2.3 cm, increased from 2.2 cm previously.? The external an internal iliac arteries appear patent bilaterally.? The common femoral arteries are also patent bilaterally.? The visualized pro ximal superficial femoral arteries are also patent. There is interval occlusion of the fem-fem bypass graft compared to the prior study. ? The celiac artery appears patent and arises from the true lumen.? The superior mesenteric artery arises from the true lumen but there is a new dissection flap extending into the SMA compared to the prior study.? There is interval increase in size of the superior mesenteric artery which measures approximately 1.3 cm in transverse dimension at its origin with aneurysmal dilatation more distally, measuring up to 1.8 cm.? There is adjacent blood product and luminal irregularity of the SMA beginning approximately 3 cm from its origin suggestive of a pseudoaneurysm, or contained rupture.? The inferior mesenteric artery arises from the true lumen and appears patent. ? ? CHEST:? Lungs and pleura:? There is a large collection contiguous with the aorta in the left upper lobe consistent with a contained rupture as described above.? Mild dependent atelectasis is demonstrated bilaterally.? There are small clustered nodules within the left lower lobe with associated small areas of mucous plugging suggesting sequelae of aspiration.? No pleural effusions or pneumothorax.? Central and peripheral airways are patent and normal in caliber.? ? Mediastinum:? Heart size is normal.? No pericardial effusion.? No mediastinal or hilar adenopathy by size criteria.? Central pulmonary arteries are normal in size.? Esophagus is normal in caliber.? No hiatal hernias.? ? Bones and chest wall:? No axillary adenopathy by size criteria.? No suspicious bony lesions.? No vertebral body compression fractures.? ? ? ABDOMEN:? ? Solid organs:? Liver is normal in size and enhancement.? Gallbladder appears within normal limits without calcified gallstones.? Biliary system is non dilated.? Pancreas enhances normally.? Spleen is normal in size and enhancement.? No adrenal nodu les.? Both kidneys are normal in size and enhancement, without hydronephrosis.? ? Peritoneum and bowel:? No free fluid or air.? Bowel loops are normal in caliber and wall thickness.? ? Nodes and vessels:? No retroperitoneal or mesenteric adenopathy by size criteria.? Inferior vena cava is normal in morphology.? ? Miscellaneous:? No ventral hernias.? ? ? PELVIS:? Genitourinary:? Bladder wall thickness is normal.? ? Miscellaneous:? No inguinal hernias or adenopathy.? No ventral hernias.? ? Bones:? There is a small thick appearance of the left hip with severe degenerative changes.? No suspicious bony lesions.? No vertebral body compression fractures.? ? ? IMPRESSION:? ? 1. Endovascular stent graft within the aortic arch and descending thoracic aorta is new compared to the prior comparison study of 09/18/2018.? There is a containing rupture of the excluded aneurysm sac extending into the left upper lobe.? Recommend comparison with prior outside studies to evaluate for stability. ? 2. Findings consistent with prior surgical repair of an ascending aortic dissection redemonstrated.? There is a dissection within the right brachiocephalic artery, with the right vertebral artery originating from the false lumen. ? 3. New dissection extending into the superior mesenteric artery which demonst rates new aneurysmal dilatation as well as a suspected pseudoaneurysm or contained perforation approximately 3 cm from its origin. ? 4. Chronic dissection within the abdominal aorta redemonstrated extending into the bilateral common iliac arteries. ? 5. Short segment dissection involving the right external iliac artery is new compared to the prior study of 09/18/2018. ? Findings discussed with Dr. Vera on 02/25/2022 at 11:38 p.m.. ? ? Dictated by: Korey Jeffery M.D. on 02/24/2022 at 23:29 ? ? Approved by: Korey Jeffery M.D. on 02/25/2022 at 0:12 ? [facility] Narrative Medical decision making narrative: 56-year-old male with extensive cardiovascular surgery and significant surgical interventions including dissection repair and a recent aneurysmal leak and repair presents hemodynamically stable with chief complaint of nausea, poor appetite and episodes of abdominal pain. His history and physical are very reassuring and labs are unremarkable. Given his history advanced imaging is obtained demonstrates no acute findings, failure of surgical interventions or evolution of disease. No significant findings to suggest an infectious process, bowel obstruction, pancreatitis, gallbladder disease or other. Patient's pain is well controlled, he is tolerating orals without difficulty. Patient given extensive return precautions, has an appointment this week with his implementation architect. Questions have been answered to his apparent satisfaction Critical Care Time Critical Care Time Critical Care Time: Yes Total Critical Care Time: 40 Attestation: The high probability of a clinically significant, sudden or life threatening deterioration of the [CV/GI] system(s) required my full and direct attention, intervention and personal management. The aggregate critical care time was [40] minutes. This time is in addition to time spent performing reported procedures but includes the following: [x] Data Review and interpretation [x] Patient assessment and monitoring of vital signs [x] Documentation [x] Medication orders and management Discharge Plan Departure Patient Disposition: Home Clinical Impression: Abdominal pain, Anorexia Instructions: DI for Abdominal Pain-Adult Activity Restrictions/Additional Instructions: *You have been diagnosed with [abdominal pain] * As we discussed your history and physical exam as well as labs and imaging are very reassuring. There is no evidence of any severe diagnoses that would require a specific or immediate intervention. *What to do: *Please continue to take your regular medications as directed. [x ] New medication prescriptions sent to your pharmacy: [ [facility]] *Please follow up with your primary care provider in 2-3 days, call for an appointment. Let them know you were seen in the Emergency Department and that we ask that you be seen in follow up. We will electronically transmit a record of today's note if your PCP is in our system *Please consider a clear liquid diet for the next 24-48 hours and then slowly advance to regular as tolerated. Also, try to avoid alcohol, nicotine, caffeine, spicy, acidic or fatty foods as this may worsen your symptoms *If you do not have a primary care provider please contact the [facility] Resource line at [phone]. They will ask some questions about your medical history and help get you set up with a doctor in the community. *Return to Emergency Department if you should have any new, worsening or concerning symptoms, such as [fever greater than 101 F, shaking chills, worsening pain, persistent vomiting or other bothersome symptoms]. Prescriptions: New pantoprazole [Protonix] 40 mg tablet,delayed release (DR/EC) 40 mg PO DAILY Qty: 30 0RF ondansetron 4 mg tablet,disintegrating 4 mg PO TID-QID PRN (Reason: nausea and vomiting) Qty: 10 0RF oxycodone 5 mg tablet 5 mg PO Q4-6H PRN (Reason: pain) Qty: 20 0RF No Action amlodipine 5 mg tablet 5 mg PO DAILY Qty: 90 3RF metoprolol succinate 100 mg tablet extended release 24 hr 100 mg PO BID Qty: 180 3RF losartan 50 mg tablet 50 mg PO DAILY Qty: 90 3RF oxycodone 5 mg tablet 10 mg PO Q6H PRN trazodone 50 mg tablet 50 - 100 mg PO BEDTIME PRN (Reason: insomnia) Qty: 60 3RF oxycodone 5 mg tablet 5 mg PO Q6H PRN (Reason: pain) Qty: 50 0RF aspirin 81 mg tablet,chewable 81 mg PO DAILY Qty: 60 0RF Referrals: Renan Mata MD [Primary Care Provider] -
[2022-02-24 21:13] LABS: PTT Partial Thromboplastin Tim 31 SECONDS (26.4-36.2)
[2022-02-24 21:16] LABS: Add Manual Diff / Slide Review NO; Basophils Absolute Auto 0 /uL (0-100); Basophils Percent Auto 0.6 % (0-2); Eosinophils Absolute Auto 200 /uL (0-450); Eosinophils Percent Auto 2.8 % (2-4); Hematocrit 34.6 % (41-53); Hemoglobin 11.6 g/dL (13.5-17.5); Lymphocytes Absolute Auto 600 /uL (1100-4500); Lymphocytes Percent Auto 10.2 % (25-40); Mean Corpuscular HGB Conc 33.6 % (30-36); Mean Corpuscular Hemoglobin 28.2 PG (26-34); Mean Corpuscular Volume 83.9 fL (80-100); Monocytes Absolute Auto 1000 /uL (0-900); Monocytes Percent Auto 16.5 % (3-14); Neutrophils Absolute Auto 4300 /uL (1500-7000); Neutrophils Percent Auto 69.9 % (50-75); Platelet Count 397 X10^3/uL (150-400); Red Blood Cell Count 4.13 X10^6/uL (4.5-5.9); Red Cell Distribution Width 15.9 % (11.6-14.8); White Blood Cell Count 6.2 X10^3/uL (4.5-11.0)
[2022-02-24 21:35] LABS: Creatine Kinase 35 U/L (55-170); Lipase 36 U/L (23-300)
[2022-02-24 21:39] LABS: COVID19 -Nasal RAPID Negative (Negative)
[2022-02-24 21:39] LABS: Alanine Aminotransferase 33 IU/L (<50); Albumin 4.1 g/dL (3.5-5.0); Alkaline Phosphatase 119 U/L (38-126); Aspartate Aminotransferase 28 IU/L (17-59); BUN Creatinine Ratio 24.8 (6-22); Bilirubin Total 0.5 mg/dL (0.2-1.3); Blood Urea Nitrogen 25 mg/dL (9-20); Calcium 9.2 mg/dL (8.4-10.2); Carbon Dioxide 29 mmol/L (22-32); Chloride 99 mmol/L (98-107); Estimated Glomerular Filt Rate > 60 mL/min (>60); Globulin 4.1 g/dL (1.7-4.1); Glucose 101 mg/dL (70-100); HEMOLYSIS < 15 (0-50); Potassium 4.7 mmol/L (3.4-5.1); Sodium 136 mmol/L (137-145); Total Protein 8.2 g/dL (6.3-8.2)
[2022-02-24 21:47] LABS: NT-proBNP (BNP-Adult 18+) 1110 pg/mL (<125); Troponin I < 0.012 ng/mL (0.01-0.034)
[2022-02-24 21:52] LABS: C-Reactive Protein Quant 12.9 mg/dL (<1.0)
--- NOTE | 2022-02-24 22:35 | DI.CT.S_ITS ---
PROCEDURE: CT ANGIO CHEST ABDOMEN PELVIS INDICATIONS: abd pain, hypotension, recent aneurysm repair TECHNIQUE: Precontrast 5 mm thick sections acquired from the lung apices to the iliac crests. After the administration of intravenous contrast, 2.5 mm thick sections again acquired from the lung apices to the iliac crests. Maximum intensity projection (MIP) oblique sagittal and coronal reformats were then acquired. For radiation dose reduction, the following was used: automated exposure control. COMPARISON: [facility], CT, ANGIOGRAPHY CHEST AND ABDOMEN, 10/18/2015, 0:59. [facility], CR, XR ACUTE ABDOMEN SERIES, 02/24/2022, 20:28. [facility], CT, CT ANGIO ABD AORTA RUNOFF, 09/18/2018, 2:02. FINDINGS: Image quality: Excellent. AORTA: There are postsurgical changes within the ascending thoracic aorta redemonstrated status post prior surgical repair of an ascending aortic dissection with reimplantation of the great vessels. 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 The right vertebral artery appears to arise from the false lumen. The right internal mammary artery arises from the true lumen. There is a re-entry tear within the right subclavian artery. The remaining great vessels appear patent and normal in caliber without dissection. There is an endovascular stent graft within the aortic arch and descending thoracic aorta. The excluded aneurysm sac measures up to approximately 6.5 cm at the level of the distal aortic arch. There is an associated contained rupture extending laterally into the left upper lobe with a collection measuring up to 9.6 x 7.3 cm demonstrated containing internal areas of gas and likely thrombosed blood product. The abdominal aorta demonstrates aneurysmal dilatation, measuring up to 3.6 cm in anteroposterior dimension, similar in size compared to the prior study. There is an aortic dissection redemonstrated with the true lumen continuing from the thoracic aorta stent graft. The dissection extends into the bilateral common iliac arteries. There is a re-entry tear within the left common iliac artery and a re-entry tear in the right external iliac artery. The dissection within the right external iliac artery is new compared to the prior study of 09/18/2018. There has also been increase in size of the iliac arteries, with the right common iliac artery measuring up to 2.4 cm compared to 2.2 cm on the prior study. The right external iliac artery measures up to 1.2 cm compared to 1.0 cm previously. The left common iliac artery measures up to 2.3 cm, increased from 2.2 cm previously. The external an internal iliac arteries appear patent bilaterally. The common femoral arteries are also patent bilaterally. The visualized proximal superficial femoral arteries are also patent. There is interval occlusion of the fem-fem bypass graft compared to the prior study. The celiac artery appears patent and arises from the true lumen. The superior mesenteric artery arises from the true lumen but there is a new dissection flap extending into the SMA compared to the prior study. There is interval increase in size of the superior mesenteric artery which measures approximately 1.3 cm in transverse dimension at its origin with aneurysmal dilatation more distally, measuring up to 1.8 cm. There is adjacent blood product and luminal irregularity of the SMA beginning approximately 3 cm from its origin suggestive of a pseudoaneurysm, or contained rupture. The inferior mesenteric artery arises from the true lumen and appears patent. CHEST: Lungs and pleura: There is a large collection contiguous with the aorta in the left upper lobe consistent with a contained rupture as described above. Mild dependent atelectasis is demonstrated bilaterally. There are small clustered nodules within the left lower lobe with associated small areas of mucous plugging suggesting sequelae of aspiration. No pleural effusions or pneumothorax. Central and peripheral airways are patent and normal in caliber. Mediastinum: Heart size is normal. No pericardial effusion. No mediastinal or hilar adenopathy by size criteria. Central pulmonary arteries are normal in size. Esophagus is normal in caliber. No hiatal hernias. Bones and chest wall: No axillary adenopathy by size criteria. No suspicious bony lesions. No vertebral body compression fractures. ABDOMEN: Solid organs: Liver is normal in size and enhancement. Gallbladder appears within normal limits without calcified gallstones. Biliary system is non dilated. Pancreas enhances normally. Spleen is normal in size and enhancement. No adrenal nodules. Both kidneys are normal in size and enhancement, without hydronephrosis. Peritoneum and bowel: No free fluid or air. Bowel loops are normal in caliber and wall thickness. Nodes and vessels: No retroperitoneal or mesenteric adenopathy by size criteria. Inferior vena cava is normal in morphology. Miscellaneous: No ventral hernias. PELVIS: Genitourinary: Bladder wall thickness is normal. Miscellaneous: No inguinal hernias or adenopathy. No ventral hernias. Bones: There is a small thick appearance of the left hip with severe degenerative changes. No suspicious bony lesions. No vertebral body compression fractures. IMPRESSION: 1. Endovascular stent graft within the aortic arch and descending thoracic aorta is new compared to the prior comparison study of 09/18/2018. There is a containing rupture of the excluded aneurysm sac extending into the left upper lobe. Recommend comparison with prior outside studies to evaluate for stability. 2. Findings consistent with prior surgical repair of an ascending aortic dissection redemonstrated. There is a dissection within the right brachiocephalic artery, with the right vertebral artery originating from the false lumen. 3. 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 4. Chronic dissection within the abdominal aorta redemonstrated extending into the bilateral common iliac arteries. 5. Short segment dissection involving the right external iliac artery is new compared to the prior study of 09/18/2018. Findings discussed with Dr. Vera on 02/25/2022 at 11:38 p.m.. Dictated by: Korey Jeffery M.D. on 02/24/2022 at 23:29 Approved by: Korey Jeffery M.D. on 02/25/2022 at 0:12
[2022-02-24] MEDS: HYDROMORPHONE 1 MG INJ IV (22:46)
[2022-02-24] MEDS: PANTOPRAZOLE 40 MG VIAL IV (22:48)
[2022-02-24] MEDS: ONDANSETRON 4 MG/2 ML INJ IV (22:48)
[2022-02-24] MEDS: SODIUM CHLORIDE 0.9% 1,000 ML 1000 ML IV (22:49)
[2022-02-25] VITALS (16 sets, daily range): BP systolic 85–145; BP diastolic 52–89; PULSE 101–108; RESP 12–24; O2SAT 89–97
[2022-02-25] MEDS: HYDROMORPHONE 1 MG INJ IV ×2 (01:57→06:40)
[2022-02-25] MEDS: LACTATED RINGERS 1,000 ML 1000 ML IV (04:59)
[2022-02-25] MEDS: ONDANSETRON 4 MG ODT PREPACK 1 BOTTLE MISC (06:41)
[2022-02-25] MEDS: OXYCODONE/APAP 5/325 PREPACK 1 BOTTLE MISC (06:41)
== END 2022-02-25 07:05 | disposition home or self-care (01) ==
PROVIDERS: Emergency Provider Emergency Medicine; PCP Internal Medicine
DX: R10.9 Unspecified abdominal pain (principal); R63.0 Anorexia; R11.0 Nausea; I95.9 Hypotension, unspecified; Z20.822 Contact with and (suspected) exposure to COVID-19
CPT/HCPCS: 36415; 71275; 74022; 74174; 80053; 82550; 83605; 83690; 83735; 83880; 84484; 85025; 85610; 85730; 86140; 86850; 86900; 86901; 87040; 87635; 93005; 93010; 96361; 96374; 96375; 96376; 99284; C9803; C9113; J1170; J2405; Q9967

== ENCOUNTER 2022-03-02 05:17 | Emergency (ER) | payer OTHER, MEDICAID, SELFPAY ==
[2022-03-02] VITALS (7 sets, daily range): BP systolic 146–172; BP diastolic 86–104; PULSE 96–113; RESP 22–24; TEMP 36.1; O2SAT 93–96; BMI 23.3
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
--- NOTE | 2022-03-02 05:47 | DI.CT.S_ITS ---
PROCEDURE: CT ANGIO CHEST ABDOMEN PELVIS INDICATIONS: persistent severe mid abdominal pain TECHNIQUE: Precontrast 5 mm thick sections acquired from the lung apices to the iliac crests. After the administration of intravenous contrast, 2.5 mm thick sections again acquired from the lung apices to the iliac crests. Maximum intensity projection (MIP) oblique sagittal and coronal reformats were then acquired. For radiation dose reduction, the following was used: automated exposure control. COMPARISON: [facility], CT, CT ANGIO CHEST ABDOMEN PELVIS, 02/24/2022, 22:42. FINDINGS: Image quality: No interval change compared to the prior CT and no active extravasation. A fem-fem bypass in the lower abdomen is patent. AORTA: An aortic stent graft is again noted. The aorta is patent. A contained rupture of the aneurysm extending from the distal arch to the left apex is unchanged compared to the prior CT. There is no active extravasation. This measures approximately 11.4 x 9.7 cm compared to 11.8 x 7.6 cm on 02/24/2022. The great vessels are patent and originate from the proximal aorta. A dissection of the right brachiocephalic artery is unchanged. Distal to the graft there is mild aneurysmal dilatation of the suprarenal aorta, unchanged with a dissection which extends into the SMA. The SMA and celiac trunk are patent. The dissection continues into the right common iliac artery, unchanged compared to prior CT. There is extension of contrast posterior to the stent graft at the diaphragmatic hiatus. This is unchanged in appearance compared to the prior study. Aortic dissection involves the tip of the aortic stent graft and extends inferiorly with contrast in both the true and false lumens. There is likely a dissection flap extending into the SMA as well. The renal arteries and mesenteric vessels arise from the true lumen. The common iliac arteries arise from the true lumen as well. There is extension of the dissection into the right common iliac artery and external iliac artery on the right. CHEST: Lungs and pleura: No acute airspace opacities. Nodularity in the left lower lobe is similar to the prior study. No pleural effusions or pneumothorax. Central and peripheral airways are patent and normal in caliber. Mediastinum: Heart size is normal. No pericardial effusion. No mediastinal or hilar adenopathy by size criteria. Central pulmonary arteries are normal in size. Esophagus is normal in caliber. No hiatal hernias. Bones and chest wall: No axillary adenopathy by size criteria. Thyroid gland is normal. No suspicious bony lesions. No vertebral body compression fractures. ABDOMEN: Solid organs: Liver is normal in size and enhancement. Gallbladder has a punctate stone is seen lying dependently in the gallbladder. . Biliary system is non dilated. Pancreas enhances normally. Spleen is normal in size and enhancement. No adrenal nodules. Both kidneys are normal in size and enhancement, without hydronephrosis. Peritoneum and bowel: No free fluid or air. Bowel loops are normal in caliber and wall thickness. Nodes and vessels: No retroperitoneal or mesenteric adenopathy by size criteria. Inferior vena cava is normal in morphology. Small partially visualized fluid collection anterior to the right superficial femoral artery probably related to prior intervention. Miscellaneous: No ventral hernias. There is trace fluid in the pelvis. PELVIS: Genitourinary: Bladder wall thickness is normal. Miscellaneous: No inguinal hernias or adenopathy. No ventral hernias. Bones: No suspicious bony lesions. No vertebral body compression fractures. IMPRESSION: 1. Dissection involving the thoracic and abdominal aorta extending into the right common iliac arteries status post stent graft placement, no significant change compared to the prior CT. 2. 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 3. Cholelithiasis without cholecystitis. Comment: Final report is concordant with preliminary interpretation by [facility] Dictated by: Alirio Johnson M.D. on 03/02/2022 at 9:57 Approved by: Alirio Johnson M.D. on 03/02/2022 at 10:11
[2022-03-02] MEDS: ONDANSETRON 4 MG/2 ML INJ IV (05:58)
[2022-03-02] MEDS: HYDROMORPHONE 1 MG INJ IV ×2 (05:58→10:17)
[2022-03-02] MEDS: SODIUM CHLORIDE 0.9% 1,000 ML 150 ML IV (05:59)
[2022-03-02 06:01] LABS: Add Manual Diff / Slide Review NO; Basophils Absolute Auto 0 /uL (0-100); Basophils Percent Auto 0.5 % (0-2); Eosinophils Absolute Auto 100 /uL (0-450); Eosinophils Percent Auto 2.4 % (2-4); Hematocrit 34.1 % (41-53); Hemoglobin 11.2 g/dL (13.5-17.5); Lymphocytes Absolute Auto 600 /uL (1100-4500); Lymphocytes Percent Auto 12.1 % (25-40); Mean Corpuscular HGB Conc 32.9 % (30-36); Mean Corpuscular Hemoglobin 27.1 PG (26-34); Mean Corpuscular Volume 82.3 fL (80-100); Monocytes Absolute Auto 800 /uL (0-900); Monocytes Percent Auto 17.4 % (3-14); Neutrophils Absolute Auto 3300 /uL (1500-7000); Neutrophils Percent Auto 67.6 % (50-75); Platelet Count 386 X10^3/uL (150-400); Red Blood Cell Count 4.15 X10^6/uL (4.5-5.9); Red Cell Distribution Width 16.3 % (11.6-14.8); White Blood Cell Count 4.9 X10^3/uL (4.5-11.0)
[2022-03-02 06:03] LABS: Lactate (Lactic Acid) 0.9 mmol/L (0.7-2.1)
[2022-03-02 06:04] LABS: Alanine Aminotransferase 20 IU/L (<50); Albumin 3.4 g/dL (3.5-5.0); Albumin Globulin Ratio 0.9 (1.0-2.8); Alkaline Phosphatase 89 U/L (38-126); Aspartate Aminotransferase 22 IU/L (17-59); BUN Creatinine Ratio 20.2 (6-22); Bilirubin Total 0.5 mg/dL (0.2-1.3); Blood Urea Nitrogen 17 mg/dL (9-20); Calcium 8.5 mg/dL (8.4-10.2); Carbon Dioxide 25 mmol/L (22-32); Chloride 101 mmol/L (98-107); Estimated Glomerular Filt Rate > 60 mL/min (>60); Globulin 3.7 g/dL (1.7-4.1); Glucose 101 mg/dL (70-100); HEMOLYSIS < 15 (0-50); Sodium 137 mmol/L (137-145); Total Protein 7.1 g/dL (6.3-8.2)
[2022-03-02] MEDS: OXYCODONE/ACETAMINOPHEN 5/325 TABLET 1 TAB PO (08:36)
[2022-03-02 09:42] LABS: Bacteria Urine None Seen; Culture Indicated Urine Cult Not Indicated; Mucus Urine 1+ (Negative); RBC Urine None Seen (0-5/HPF); WBC Urine 1-5/HPF (0-5/HPF)
== END 2022-03-02 11:01 | disposition home or self-care (01) ==
PROVIDERS: Emergency Medicine; Emergency Provider Emergency Medicine; PCP Internal Medicine
DX: R10.10 Upper abdominal pain, unspecified (principal); R11.0 Nausea; I10 Essential (primary) hypertension; R00.0 Tachycardia, unspecified
CPT/HCPCS: 36415; 71275; 74174; 80053; 81003; 81015; 83605; 85025; 86850; 86900; 86901; 96361; 96374; 96375; 96376; 99284; J1170; J2405; Q9967